=== PATIENT | male | born 1935 | race Two or more races ===

== ENCOUNTER 2019-10-10 13:55 | Inpatient (IN) | payer BC ==
[~2019-10-10] VITALS: Ht 177.8 cm; Wt 90.7 kg
[2019-10-10 14:26] VITALS: BP 130/58
--- NOTE | 2019-10-10 14:45 | NUR ---
ED Nurse Note: Patient brought in by ambulance RA 58 from home. patient c/o dizziness for 2 days. patient is alert awake x3 breathing unlabored and even, speaking in full sentences. patient on a hospital gown and placed on a campus monitor.
--- NOTE | 2019-10-10 15:10 | NUR ---
ED Nurse Note: blood sent to lab.
--- NOTE | 2019-10-10 15:20 | NUR ---
ED Nurse Note: son at bedside. caregiver at bedside. patient a/o x3 resting in bed.
--- NOTE | 2019-10-10 15:29 | Emergency Room Report ---
History of Present Illness General Chief Complaint: Dizziness Source: Patient, EMS Present Illness HPI Patient presents with complaints of dizziness and lightheadedness patient reports that when he stands and walks he feels that the symptoms worsen Ongoing for the past 3 days denies any headache denies any chest pain he does have general weakness as well Marketing Planning Manager reports that the patient has had significantly decreased oral intake Appears to be having chills at times patient denies any focal weakness denies any recent trauma Patient recalls taking amlodipine however cannot provide specific names of other medication Allergies: Coded Allergies: No Known Allergies (Unverified , 10/10/19) Patient History Past Medical History: see triage record Reviewed Nursing Documentation: PMH: Agreed; PSxH: Agreed Nursing Documentation-PMH Past Medical History: No History, Except For Hx Hypertension: Yes Hx Diabetes: Yes Review of Systems All Other Systems: negative except mentioned in HPI Physical Exam Vital Signs Date Time Temp Pulse Resp B/P (MAP) Pulse Ox O2 Delivery O2 Flow Rate FiO2 10/10/19 13:48 97.5 44 20 131/57 (81) 98 Room Air Sp02 EP Interpretation: reviewed, normal General Appearance: no apparent distress Head: normocephalic, atraumatic Eyes: bilateral eye PERRL ENT: EOM grossly intact Neck: supple Respiratory: lungs clear, no respiratory distress, no retraction Cardiovascular #1: regular rate, rhythm Gastrointestinal: non tender, soft Musculoskeletal: swelling - Dependent bilateral mild edema Neurologic: alert, oriented x3 Skin: no rash Procedures Critical Care Time Critical Care Time 40 minutes for critical presentation concerning findings concerning for cardio cardiopulmonary arrest and possible not including any procedural time Medical Decision Making Diagnostic Impression: Primary Impression: Symptomatic bradycardia Additional Impression: Dizziness ER Course Patient is a fairly complex patient with multiple differential to consideration including but not limited to cardiac cardiopulmonary and vascular emergencies Upon arrival patient is found to be bradycardic at this time I cannot appreciate any obvious rate controlling medications Patient has further hydration provided there is sign of dehydration and hyperkalemia Patient has continued to mildly improve up to Low to mid 50 heart rate and at this time is admitted for further inpatient care Labs Test 10/10/19 14:52 10/10/19 19:57 White Blood Count 4.5 K/UL (4.8-10.8) Red Blood Count 3.44 M/UL (4.70-6.10) Hemoglobin 11.0 G/DL (14.2-18.0) Hematocrit 31.1 % (42.0-52.0) Mean Corpuscular Volume 91 FL (80-99) Mean Corpuscular Hemoglobin 32.1 PG (27.0-31.0) Mean Corpuscular Hemoglobin Concent 35.4 G/DL (32.0-36.0) Red Cell Distribution Width 15.1 % (11.6-14.8) Platelet Count 181 K/UL (150-450) Mean Platelet Volume 5.9 FL (6.5-10.1) Neutrophils (%) (Auto) 54.6 % (45.0-75.0) Lymphocytes (%) (Auto) 24.3 % (20.0-45.0) Monocytes (%) (Auto) 8.8 % (1.0-10.0) Eosinophils (%) (Auto) 10.5 % (0.0-3.0) Basophils (%) (Auto) 1.7 % (0.0-2.0) Prothrombin Time 10.2 SEC (9.30-11.50) Prothromb Time International Ratio 1.0 (0.9-1.1) Activated Partial Thromboplast Time 33 SEC (23-33) Sodium Level 145 MMOL/L (136-145) Potassium Level 5.3 MMOL/L (3.5-5.1) Chloride Level 110 MMOL/L (98-107) Carbon Dioxide Level 26 MMOL/L (21-32) Anion Gap 9 mmol/L (5-15) Blood Urea Nitrogen 82 mg/dL (7-18) Creatinine 1.9 MG/DL (0.55-1.30) Estimat Glomerular Filtration Rate mL/min (>60) Glucose Level 63 MG/DL (74-106) Lactic Acid Level 0.90 mmol/L (0.4-2.0) Calcium Level 8.9 MG/DL (8.5-10.1) Total Bilirubin 0.6 MG/DL (0.2-1.0) Aspartate Amino Transf (AST/SGOT) 38 U/L (15-37) Alanine Aminotransferase (ALT/SGPT) 61 U/L (12-78) Alkaline Phosphatase 137 U/L (46-116) Total Creatine Kinase 119 U/L (26-308) Creatine Kinase MB 12.7 NG/ML (0.0-3.6) Creatine Kinase MB Relative Index 10.6 Troponin I 0.022 ng/mL (0.000-0.056) Pro-B-Type Natriuretic Peptide 346 pg/mL (0-125) Total Protein 7.2 G/DL (6.4-8.2) Albumin 3.2 G/DL (3.4-5.0) Globulin 4.0 g/dL Albumin/Globulin Ratio 0.8 (1.0-2.7) Lipase 307 U/L (73-393) Urine Color Pale yellow Urine Appearance Slightly cloudy Urine pH 7 (4.5-8.0) Urine Specific [place] 1.010 (1.005-1.035) Urine Protein 3+ (NEGATIVE) Urine Glucose (UA) Negative (NEGATIVE) Urine Ketones Negative (NEGATIVE) Urine Blood 1+ (NEGATIVE) Urine Nitrite Negative (NEGATIVE) Urine Bilirubin Negative (NEGATIVE) Urine Urobilinogen Normal MG/DL (0.0-1.0) Urine Leukocyte Esterase 3+ (NEGATIVE) Urine RBC 0-2 /HPF (0 - 0) Urine WBC 10-15 /HPF (0 - 0) Urine Squamous Epithelial Cells None /LPF (NONE/OCC) Urine Bacteria Occasional /HPF (NONE) Rhythm Strip Diag. Results EP Interpretation: yes Rate: 40 Rhythm: NSR, no PVC's, no ectopy Chest X-Ray Diagnostic Results Chest X-Ray Diagnostic Results : Chest X-Ray Ordered: Yes # of Views/Limited/Complete: 1 View Indication: Chest Pain EP Interpretation: Yes Interpretation: no consolidation, no acute cardiopulmonary disease, other - Mild atelectasis bilaterally Impression: No acute disease Electronically Signed by: Rosie Aguirre DO Last Vital Signs Date Time Temp Pulse Resp B/P (MAP) Pulse Ox O2 Delivery O2 Flow Rate FiO2 10/10/19 14:28 42 13 Room Air 10/10/19 14:26 97.5 130/58 98 Status: improved Disposition: ADMITTED INPATIENT Condition: Rosie Alejo DO Oct 10, 2019 15:29
[2019-10-10 15:36] LABS: BASOPHILS % (AUTO) 1.7 % (0.0-2.0); EOSINOPHILS % (AUTO) 10.5 % (0.0-3.0); HEMATOCRIT 31.1 % (42.0-52.0); LYMPHOCYTES % (AUTO) 24.3 % (20.0-45.0); MEAN CORPUSCULAR VOLUME 91 FL (80-99); MONOCYTES % (AUTO) 8.8 % (1.0-10.0); NEUTROPHILS % (AUTO) 54.6 % (45.0-75.0); PLATELET COUNT 181 K/UL (150-450); RED BLOOD COUNT 3.44 M/UL (4.70-6.10); RED CELL DISTRIBUTION WIDTH 15.1 % (11.6-14.8); WHITE BLOOD COUNT 4.5 K/UL (4.8-10.8)
[2019-10-10 15:47] LABS: ANION GAP 9 mmol/L (5-15); BLOOD UREA NITROGEN 82 mg/dL (7-18); CALCIUM 8.9 MG/DL (8.5-10.1); CARBON DIOXIDE 26 MMOL/L (21-32); CHLORIDE 110 MMOL/L (98-107); CREATININE 1.9 MG/DL (0.55-1.30); POTASSIUM 5.3 MMOL/L (3.5-5.1); SODIUM 145 MMOL/L (136-145)
[2019-10-10 15:59] LABS: ALANINE AMINOTRANSFERASE 61 U/L (12-78); ALBUMIN 3.2 G/DL (3.4-5.0); ALBUMIN/GLOBULIN RATIO 0.8 (1.0-2.7); ALKALINE PHOSPHATASE 137 U/L (46-116); ASPARTATE AMINO TRANSFERASE 38 U/L (15-37); BILIRUBIN,TOTAL 0.6 MG/DL (0.2-1.0); CKMB 12.7 NG/ML (0.0-3.6); CREATINE KINASE 119 U/L (26-308)
[2019-10-10] MEDS ORDERED: PROSCAR5 MG ORAL (17:28)
[2019-10-10] MEDS ORDERED: AMLODIPINE BESYL5 MG ORAL (17:28)
[2019-10-10] MEDS ORDERED: ATORVASTATIN CA40 MG ORAL (17:28)
[2019-10-10] MEDS ORDERED: SERTRALINE HCL25 MG ORAL (17:28)
[2019-10-10] MEDS ORDERED: Sodium Polystyrene Sulfonate 15gm Powder ORAL ONE (17:45)
[2019-10-10] MEDS ORDERED: Sodium Polystyrene Sulfonate 15gm Powder ONE (17:58)
--- NOTE | 2019-10-10 18:59 | NUR ---
HAND-OFF: Report given to ALYSHA JOHNSON.
--- NOTE | 2019-10-10 19:00 | NUR ---
ED Nurse Note: Hand-off report given by Elli JOHNSON. Pt VSS, NAD, calm and resting. Will continue to monitor patient.
--- NOTE | 2019-10-10 19:50 | NUR ---
ED Nurse Note: Urine collected and sent to lab.
[2019-10-10 20:30] LABS: APPEARANCE,URINE SLIGHTLY CLOUDY; BILIRUBIN, URINE NEGATIVE (NEGATIVE); COLOR,URINE PALE YELLOW; GLUCOSE, URINE (UA) NEGATIVE (NEGATIVE); KETONES,URINE NEGATIVE (NEGATIVE); LEUKOCYTE ESTERASE ,URINE 3+ (NEGATIVE); NITRITE,URINE NEGATIVE (NEGATIVE); PH,URINE 7 (4.5-8.0); PROTEIN,URINE 3+ (NEGATIVE); UROBILINOGEN,URINE NORMAL MG/DL (0.0-1.0)
[2019-10-10] MEDS ORDERED: Heparin 5000 units/ml inj SUBQ SCH (21:00)
[2019-10-10 21:26] VITALS: BP 126/59
--- NOTE | 2019-10-10 22:10 | NUR ---
ED Nurse Note: Pt report given to Siria JOHNSON
--- NOTE | 2019-10-10 22:20 | NUR ---
TRANSFER TO FLOOR: Patient transferred to [facility] as ordered, per ERMD. Report given to Siria JOHNSON. Belongings given to Siria JOHNSON. Pt VSS, NAD, calm.
[2019-10-10 22:22] VITALS: BP 128/72
--- NOTE | 2019-10-10 22:22 | NUR ---
NURSE NOTES: Patient arrived via gurney to the unit and placed into room 238-2. Patient placed into bed, campus monitor is placed, vital signs taken, gown and linen changed. Patient states he does not take any medications for his diabetes. Request for all side rails to be up which he states "just incase". All needs are fulfilled. Report received from Rafa Crespo RN. Dr. Orr orders are in. Will initiate plan of care.
[2019-10-10] MEDS: D5 1/2NS 1,000 ML IV SCH (22:38)
[2019-10-10] MEDS: Heparin 5000 units/ml inj SUBQ SCH (22:39)
[2019-10-11] VITALS (7 sets, daily range): BP systolic 127–148; BP diastolic 68–80
--- NOTE | 2019-10-11 07:05 | NUR ---
HAND-OFF: Report given to Omaira/ELIZABETH Hernandes.
[2019-10-11 07:21] LABS: BASOPHILS % (AUTO) 1.6 % (0.0-2.0); EOSINOPHILS % (AUTO) 9.3 % (0.0-3.0); HEMATOCRIT 30.3 % (42.0-52.0); HEMOGLOBIN 10.1 G/DL (14.2-18.0); LYMPHOCYTES % (AUTO) 19.4 % (20.0-45.0); MEAN CORPUSCULAR VOLUME 95 FL (80-99); MONOCYTES % (AUTO) 8.6 % (1.0-10.0); NEUTROPHILS % (AUTO) 61.2 % (45.0-75.0); PLATELET COUNT 177 K/UL (150-450); RED BLOOD COUNT 3.17 M/UL (4.70-6.10); RED CELL DISTRIBUTION WIDTH 17.4 % (11.6-14.8); WHITE BLOOD COUNT 4.4 K/UL (4.8-10.8)
[2019-10-11 07:27] LABS: ALANINE AMINOTRANSFERASE 54 U/L (12-78); ALBUMIN 2.9 G/DL (3.4-5.0); ALBUMIN/GLOBULIN RATIO 0.8 (1.0-2.7); ALKALINE PHOSPHATASE 124 U/L (46-116); ANION GAP 8 mmol/L (5-15); ASPARTATE AMINO TRANSFERASE 36 U/L (15-37); BILIRUBIN,TOTAL 0.7 MG/DL (0.2-1.0); BLOOD UREA NITROGEN 73 mg/dL (7-18); CALCIUM 8.5 MG/DL (8.5-10.1); CARBON DIOXIDE 27 MMOL/L (21-32); CHLORIDE 112 MMOL/L (98-107); CREATININE 1.9 MG/DL (0.55-1.30); POTASSIUM 4.3 MMOL/L (3.5-5.1); SODIUM 147 MMOL/L (136-145)
--- NOTE | 2019-10-11 08:00 | NUR ---
NURSE NOTES: Patient received from Siria JOHNSON. Patient stable, sleeping at this time. No s/sx of distress with RR even and unlabored on RA. Side rails padded and upx2, call light within reach, bed low and locked. Received call from Dr. Newton to keep pt. NPO for possible pacemaker placement. Will continue to monitor.
[2019-10-11] MEDS: Heparin 5000 units/ml inj SUBQ SCH ×2 (08:43→20:23)
[2019-10-11] MEDS: Sertraline 50mg tab ORAL SCH (08:43)
--- NOTE | 2019-10-11 08:54 | Diagnostic Imaging Report ---
Indication: Chest pain Technique: XRAY Chest 1v Comparison: None Findings: Lung volumes are low. Heart appears mildly enlarged. Some subtle opacities noted at the medial bases, left greater than right, which may related to expiratory atelectatic changes. Infectious infiltrates thought less likely but not excluded. No radiographically appreciable pleural effusion or pneumothorax. There is osteopenia and degenerative changes of the spine and shoulders. Impression: Limited exam with low lung volumes. Subtle streaky opacities at the bilateral bases favored to represent extra atelectasis. Infectious infiltrate is felt less likely but not entirely excluded. Correlation with clinical findings is recommended.
--- NOTE | 2019-10-11 09:20 | History and Physical ---
History of Present Illness General Date patient seen: Oct 11, 2019 Reason for Hospitalization: Dizziness Present Illness HPI 84 year old male who presented to the ER with 3 days of dizziness and shaking. He is a poor historian and sarcastic at times. History obtained from review of medical chart. He tells me he has diabetes and hypertension, and takes 7 medications however doesn't know their names. He feels cold and clammy. Denies chest pain, sob, palpitations or LOC. His primary care doctor is Hermes Naylor. Per pet care associate, patient has significant reduction in oral intake. No fevers at home. In the ER his BP 131/57, Hr low at 44, temp 97.5F, sats 98% on RA. He was found to be hypoglycemic with glucose of 63, BUN/Cr: 82/1.9, CXR: Low lung volumes.initial EKG strip: Junctional rhythm at 45 bmp. Past medical and surgical history: HTN, DM, HLD, BPH, depression, multiple spine surgeries Social history: Lives at home with Family history: denies history of heart disease ROS: Denies chest pain, sob, palpitations, loc, has poor appetite, chills, shaking, dizziness and lightheadedness Allergies: Coded Allergies: No Known Allergies (Unverified , 10/10/19) Medication History Scheduled Amlodipine Besylate* (Amlodipine Besylate*), 5 MG ORAL DAILY, (Reported) Atorvastatin Calcium* (Atorvastatin Calcium*), 80 MG ORAL BEDTIME, (Reported) Finasteride* (Proscar*), 5 MG ORAL DAILY, (Reported) Sertraline Hcl* (Sertraline Hcl*), 25 MG ORAL DAILY, (Reported) Patient History Healthcare decision maker Resuscitation status Full Code Advanced Directive on File Physical Exam Physical Exam Narrative General Appearance: no apparent distress Head: normocephalic, atraumatic Eyes: bilateral eye PERRL ENT: EOM grossly intact Neck: supple, no jvd Respiratory: lungs clear, no respiratory distress, no retraction, no rales, wheezing or rhonchi Cardiovascular : RRR, no m/r/g, trace lower extremity edema bilaterally Gastrointestinal: non tender, soft, non distended, +bs, obese Musculoskeletal: moves all extremities, normal tone Neurologic: alert, oriented x3, grossly normal Skin: no rash, left eyelid actinic keratosis, lesion on nose Last 24 Hour Vital Signs Date Time Temp Pulse Resp B/P (MAP) Pulse Ox O2 Delivery O2 Flow Rate FiO2 10/11/19 04:00 Room Air 10/11/19 04:00 97.4 57 20 127/68 (87) 94 10/11/19 03:32 62 10/11/19 00:00 97.8 57 20 127/74 (91) 98 10/11/19 00:00 Room Air 10/10/19 23:49 62 10/10/19 22:33 97.5 66 17 126/59 96 Room Air 10/10/19 22:22 Room Air 10/10/19 22:22 97.4 60 24 128/72 (90) 95 10/10/19 21:26 66 17 126/59 96 Room Air 10/10/19 14:28 42 13 Room Air 10/10/19 14:26 97.5 42 13 130/58 98 Room Air 10/10/19 13:48 97.5 44 20 131/57 (81) 98 Room Air Intake and Output 10/10/19 10/11/19 19:00 07:00 Intake Total 918.26 ml Balance 918.26 ml Intake Oral 500 ml IV Total 418.26 ml # Voids 1 Laboratory Tests Test 10/10/19 14:52 10/10/19 19:57 10/11/19 03:27 10/11/19 08:20 White Blood Count 4.5 K/UL (4.8-10.8) L 4.4 K/UL (4.8-10.8) L Red Blood Count 3.44 M/UL (4.70-6.10) L 3.17 M/UL (4.70-6.10) L Hemoglobin 11.0 G/DL (14.2-18.0) L 10.1 G/DL (14.2-18.0) L Hematocrit 31.1 % (42.0-52.0) L 30.3 % (42.0-52.0) L Mean Corpuscular Volume 91 FL (80-99) 95 FL (80-99) Mean Corpuscular Hemoglobin 32.1 PG (27.0-31.0) H 31.9 PG (27.0-31.0) H Mean Corpuscular Hemoglobin Concent 35.4 G/DL (32.0-36.0) 33.5 G/DL (32.0-36.0) Red Cell Distribution Width 15.1 % (11.6-14.8) H 17.4 % (11.6-14.8) H Platelet Count 181 K/UL (150-450) 177 K/UL (150-450) Mean Platelet Volume 5.9 FL (6.5-10.1) L 6.3 FL (6.5-10.1) L Neutrophils (%) (Auto) 54.6 % (45.0-75.0) 61.2 % (45.0-75.0) Lymphocytes (%) (Auto) 24.3 % (20.0-45.0) 19.4 % (20.0-45.0) L Monocytes (%) (Auto) 8.8 % (1.0-10.0) 8.6 % (1.0-10.0) Eosinophils (%) (Auto) 10.5 % (0.0-3.0) H 9.3 % (0.0-3.0) H Basophils (%) (Auto) 1.7 % (0.0-2.0) 1.6 % (0.0-2.0) Prothrombin Time 10.2 SEC (9.30-11.50) Prothromb Time International Ratio 1.0 (0.9-1.1) Activated Partial Thromboplast Time 33 SEC (23-33) Sodium Level 145 MMOL/L (136-145) 147 MMOL/L (136-145) H Potassium Level 5.3 MMOL/L (3.5-5.1) H 4.3 MMOL/L (3.5-5.1) Chloride Level 110 MMOL/L (98-107) H 112 MMOL/L (98-107) H Carbon Dioxide Level 26 MMOL/L (21-32) 27 MMOL/L (21-32) Anion Gap 9 mmol/L (5-15) 8 mmol/L (5-15) Blood Urea Nitrogen 82 mg/dL (7-18) H 73 mg/dL (7-18) H Creatinine 1.9 MG/DL (0.55-1.30) H 1.9 MG/DL (0.55-1.30) H Estimat Glomerular Filtration Rate mL/min (>60) mL/min (>60) Glucose Level 63 MG/DL (74-106) L 73 MG/DL (74-106) L Lactic Acid Level 0.90 mmol/L (0.4-2.0) Calcium Level 8.9 MG/DL (8.5-10.1) 8.5 MG/DL (8.5-10.1) Total Bilirubin 0.6 MG/DL (0.2-1.0) 0.7 MG/DL (0.2-1.0) Aspartate Amino Transf (AST/SGOT) 38 U/L (15-37) H 36 U/L (15-37) Alanine Aminotransferase (ALT/SGPT) 61 U/L (12-78) 54 U/L (12-78) Alkaline Phosphatase 137 U/L (46-116) H 124 U/L (46-116) H Total Creatine Kinase 119 U/L (26-308) Creatine Kinase MB 12.7 NG/ML (0.0-3.6) H Creatine Kinase MB Relative Index 10.6 Troponin I 0.022 ng/mL (0.000-0.056) 0.009 ng/mL (0.000-0.056) Pro-B-Type Natriuretic Peptide 346 pg/mL (0-125) H Total Protein 7.2 G/DL (6.4-8.2) 6.4 G/DL (6.4-8.2) Albumin 3.2 G/DL (3.4-5.0) L 2.9 G/DL (3.4-5.0) L Globulin 4.0 g/dL 3.5 g/dL Albumin/Globulin Ratio 0.8 (1.0-2.7) L 0.8 (1.0-2.7) L Lipase 307 U/L (73-393) Urine Color Pale yellow Urine Appearance Slightly cloudy Urine pH 7 (4.5-8.0) Urine Specific [place] 1.010 (1.005-1.035) Urine Protein 3+ (NEGATIVE) H Urine Glucose (UA) Negative (NEGATIVE) Urine Ketones Negative (NEGATIVE) Urine Blood 1+ (NEGATIVE) H Urine Nitrite Negative (NEGATIVE) Urine Bilirubin Negative (NEGATIVE) Urine Urobilinogen Normal MG/DL (0.0-1.0) Urine Leukocyte Esterase 3+ (NEGATIVE) H Urine RBC 0-2 /HPF (0 - 0) H Urine WBC 10-15 /HPF (0 - 0) H Urine Squamous Epithelial Cells None /LPF (NONE/OCC) Urine Bacteria Occasional /HPF (NONE) Thyroid Stimulating Hormone (TSH) 3.691 uiU/mL (0.358-3.740) Hemoglobin A1c Pending Uric Acid Pending Phosphorus Level Pending Magnesium Level Pending Iron Level Pending Unsaturated Iron Binding Pending Ferritin Pending Vitamin B12 Level Pending Folate Pending Free Thyroxine Pending Free Triiodothyronine Pending Height (Feet): 5 Height (Inches): 10.00 Weight (Pounds): 200 Medications Current Medications Medications (Trade) Dose Ordered Sig/Livia Route PRN Reason Start Time Stop Time Status Last Admin Dose Admin Acetaminophen (Tylenol) 650 mg Q4H PRN ORAL Mild Pain (Pain Scale 1-3) 10/10/19 19:00 11/09/19 18:59 Dextrose (Dextrose 50%) 25 ml Q30M PRN IV Hypoglycemia 10/10/19 19:00 11/09/19 18:59 Dextrose (Dextrose 50%) 50 ml Q30M PRN IV Hypoglycemia 10/10/19 19:00 11/09/19 18:59 Dextrose/Sodium Chloride 1,000 ml @ 50 mls/hr Q20H IV 10/10/19 22:00 11/09/19 21:59 10/10/19 22:38 Finasteride (Proscar) 5 mg DAILY ORAL 10/11/19 09:00 11/10/19 08:59 10/11/19 08:43 Heparin Sodium (Porcine) (Heparin 5000 units/ml) 5,000 units EVERY 12 HOURS SUBQ 10/10/19 22:00 11/09/19 21:59 10/10/19 22:39 Sertraline HCl (Zoloft) 25 mg DAILY ORAL 10/11/19 09:00 11/10/19 08:59 10/11/19 08:43 Objective Narrative EKG strip personally reviewed by me: Junctional rhythm at 44 bmp. CXR; low lung volumes Assessment/Plan Problem List: (1) Symptomatic bradycardia ICD Codes: R00.1 - Bradycardia, unspecified SNOMED: 16030630, 221526253 (2) Hypoglycemia ICD Codes: E16.2 - Hypoglycemia, unspecified SNOMED: 228008589 (3) LLOYD (acute kidney injury) ICD Codes: N17.9 - Acute kidney failure, unspecified SNOMED: 8447449, 53061253 Status: stable Assessment/Plan: 84 year old male, presented with dizziness, shaking and lightheadedness being admitted for symptomatic bradycardia, LLOYD and dehydration #Symptomatic bradycardia -Telemetry monitoring -EP cardiology consult with Dr. Newton -NPO -Hold bp meds -Check TSH #LLOYD- prerenal, possibly superimposed on CKD -Monitor renal function -Urine lytes -Nephrology consult, Dr. Lopez -Avoid nephrotoxic medications #hypoglycemia -hold meds -Monitor glucose -check HbA1c -will d/w Dr. Cyndy castellon endocrine consultation #HTN #HLD -hold bp meds -continue atorvastatin #BPH -continue Finasteride #Depression -continue Sertraline vte ppx: heparin subq GI ppx: Not indicated Diet: NPO Code status: full code. spent 15 minutes in face to face discussion regarding advance care planning/Goals of care. Patient is full code. Will attempt to fill out an AD and/or POLST with the patient prior to discharge, if not already completed. Rishahb continue to discuss both short and truck terminal manager goals of care. I spent 70 minutes on this encounter. >50% spent on counselling and care coordination. I spent an additional 35 minutes on non face to face review of records. Plan of care d/w RN and consultants. Jordin Kline M.D. Oct 11, 2019 09:20
[2019-10-11 09:23] LABS: FERRITIN 162 NG/ML (8-388)
[2019-10-11 09:27] LABS: PHOSPHORUS 4.3 MG/DL (2.5-4.9)
[2019-10-11 09:37] LABS: % IRON SATURATION 52 % (15-50); IRON 148 ug/dL (50-175); TOTAL IRON BINDING CAPACITY 284 ug/dL (250-450)
--- NOTE | 2019-10-11 13:43 | NUR ---
*-* INSURANCE *-* ALL CLINICALS AND REVIEWS HAVE BEEN FAXED TO: [employer] AUTH#[id number] NO PER DIEM NURSE AT THIS TIME FAX ALL CLINICALS TO [phone]
--- NOTE | 2019-10-11 13:52 | Cardiac Electrophysiology PN ---
Subjective Subjective [id number] Hold off on pacer as junctional rhythm happened in the setting or acute renal failure, hyperkalemia and hypernatremia. HR better already If bradycardia recurs despite correction of electrolyte abnormality, then will consider pacer. DW Son Objective Last 24 Hour Vital Signs Date Time Temp Pulse Resp B/P (MAP) Pulse Ox O2 Delivery O2 Flow Rate FiO2 10/11/19 12:00 59 10/11/19 12:00 97.7 61 18 143/76 (98) 94 10/11/19 09:00 Room Air 10/11/19 08:00 63 10/11/19 08:00 97.2 72 18 129/80 (96) 93 10/11/19 04:00 Room Air 10/11/19 04:00 97.4 57 20 127/68 (87) 94 10/11/19 03:32 62 10/11/19 00:00 97.8 57 20 127/74 (91) 98 10/11/19 00:00 Room Air 10/10/19 23:49 62 10/10/19 22:33 97.5 66 17 126/59 96 Room Air 10/10/19 22:22 Room Air 10/10/19 22:22 97.4 60 24 128/72 (90) 95 10/10/19 21:26 66 17 126/59 96 Room Air 10/10/19 14:28 42 13 Room Air 10/10/19 14:26 97.5 42 13 130/58 98 Room Air Intake and Output 10/10/19 10/11/19 19:00 07:00 Intake Total 918.26 ml Balance 918.26 ml Intake Oral 500 ml IV Total 418.26 ml # Voids 1 Laboratory Tests Test 10/10/19 14:52 10/10/19 19:57 10/11/19 03:27 10/11/19 08:20 White Blood Count 4.5 K/UL (4.8-10.8) L 4.4 K/UL (4.8-10.8) L Red Blood Count 3.44 M/UL (4.70-6.10) L 3.17 M/UL (4.70-6.10) L Hemoglobin 11.0 G/DL (14.2-18.0) L 10.1 G/DL (14.2-18.0) L Hematocrit 31.1 % (42.0-52.0) L 30.3 % (42.0-52.0) L Mean Corpuscular Volume 91 FL (80-99) 95 FL (80-99) Mean Corpuscular Hemoglobin 32.1 PG (27.0-31.0) H 31.9 PG (27.0-31.0) H Mean Corpuscular Hemoglobin Concent 35.4 G/DL (32.0-36.0) 33.5 G/DL (32.0-36.0) Red Cell Distribution Width 15.1 % (11.6-14.8) H 17.4 % (11.6-14.8) H Platelet Count 181 K/UL (150-450) 177 K/UL (150-450) Mean Platelet Volume 5.9 FL (6.5-10.1) L 6.3 FL (6.5-10.1) L Neutrophils (%) (Auto) 54.6 % (45.0-75.0) 61.2 % (45.0-75.0) Lymphocytes (%) (Auto) 24.3 % (20.0-45.0) 19.4 % (20.0-45.0) L Monocytes (%) (Auto) 8.8 % (1.0-10.0) 8.6 % (1.0-10.0) Eosinophils (%) (Auto) 10.5 % (0.0-3.0) H 9.3 % (0.0-3.0) H Basophils (%) (Auto) 1.7 % (0.0-2.0) 1.6 % (0.0-2.0) Prothrombin Time 10.2 SEC (9.30-11.50) Prothromb Time International Ratio 1.0 (0.9-1.1) Activated Partial Thromboplast Time 33 SEC (23-33) Sodium Level 145 MMOL/L (136-145) 147 MMOL/L (136-145) H Potassium Level 5.3 MMOL/L (3.5-5.1) H 4.3 MMOL/L (3.5-5.1) Chloride Level 110 MMOL/L (98-107) H 112 MMOL/L (98-107) H Carbon Dioxide Level 26 MMOL/L (21-32) 27 MMOL/L (21-32) Anion Gap 9 mmol/L (5-15) 8 mmol/L (5-15) Blood Urea Nitrogen 82 mg/dL (7-18) H 73 mg/dL (7-18) H Creatinine 1.9 MG/DL (0.55-1.30) H 1.9 MG/DL (0.55-1.30) H Estimat Glomerular Filtration Rate mL/min (>60) mL/min (>60) Glucose Level 63 MG/DL (74-106) L 73 MG/DL (74-106) L Lactic Acid Level 0.90 mmol/L (0.4-2.0) Calcium Level 8.9 MG/DL (8.5-10.1) 8.5 MG/DL (8.5-10.1) Total Bilirubin 0.6 MG/DL (0.2-1.0) 0.7 MG/DL (0.2-1.0) Aspartate Amino Transf (AST/SGOT) 38 U/L (15-37) H 36 U/L (15-37) Alanine Aminotransferase (ALT/SGPT) 61 U/L (12-78) 54 U/L (12-78) Alkaline Phosphatase 137 U/L (46-116) H 124 U/L (46-116) H Total Creatine Kinase 119 U/L (26-308) Creatine Kinase MB 12.7 NG/ML (0.0-3.6) H Creatine Kinase MB Relative Index 10.6 Troponin I 0.022 ng/mL (0.000-0.056) 0.009 ng/mL (0.000-0.056) Pro-B-Type Natriuretic Peptide 346 pg/mL (0-125) H Total Protein 7.2 G/DL (6.4-8.2) 6.4 G/DL (6.4-8.2) Albumin 3.2 G/DL (3.4-5.0) L 2.9 G/DL (3.4-5.0) L Globulin 4.0 g/dL 3.5 g/dL Albumin/Globulin Ratio 0.8 (1.0-2.7) L 0.8 (1.0-2.7) L Lipase 307 U/L (73-393) Urine Color Pale yellow Urine Appearance Slightly cloudy Urine pH 7 (4.5-8.0) Urine Specific [place] 1.010 (1.005-1.035) Urine Protein 3+ (NEGATIVE) H Urine Glucose (UA) Negative (NEGATIVE) Urine Ketones Negative (NEGATIVE) Urine Blood 1+ (NEGATIVE) H Urine Nitrite Negative (NEGATIVE) Urine Bilirubin Negative (NEGATIVE) Urine Urobilinogen Normal MG/DL (0.0-1.0) Urine Leukocyte Esterase 3+ (NEGATIVE) H Urine RBC 0-2 /HPF (0 - 0) H Urine WBC 10-15 /HPF (0 - 0) H Urine Squamous Epithelial Cells None /LPF (NONE/OCC) Urine Bacteria Occasional /HPF (NONE) Thyroid Stimulating Hormone (TSH) 3.691 uiU/mL (0.358-3.740) Hemoglobin A1c 5.4 % (4.3-6.0) Uric Acid 1.0 MG/DL (2.6-7.2) L Phosphorus Level 4.3 MG/DL (2.5-4.9) Magnesium Level 2.5 MG/DL (1.8-2.4) H Iron Level 148 ug/dL (50-175) Total Iron Binding Capacity 284 ug/dL (250-450) Percent Iron Saturation 52 % (15-50) H Unsaturated Iron Binding 136 ug/dL (112-346) Ferritin 162 NG/ML (8-388) Vitamin B12 Level 855 PG/ML (193-986) Folate 10.8 NG/ML (8.6-58.9) Free Thyroxine 0.88 NG/DL (0.76-1.46) Free Triiodothyronine 1.7 pg/mL (2.3-4.2) L Microbiology Date/Time Source Procedure Growth Status 10/10/19 19:57 Urine,Clean Catch Urine Culture - Preliminary Resulted Jesus Newton MD Oct 11, 2019 13:52
--- NOTE | 2019-10-11 14:23 | Consultation ---
Consult Note Consult Note Asked to eval for renal failure Patient presents with complaints of dizziness and lightheadedness patient reports that when he stands and walks he feels that the symptoms worsen Ongoing for the past 3 days denies any headache denies any chest pain he does have general weakness as well Echocardiography Technologist reports that the patient has had significantly decreased oral intake Appears to be having chills at times patient denies any focal weakness denies any recent trauma Patient recalls taking amlodipine however cannot provide specific names of other medication No Known Allergies (Unverified , 10/10/19) Past Medical History: No History, Except For Hx Hypertension: Yes Hx Diabetes: Yes interviewed examined data reviewed . Assessment/Plan LLOYD (acute kidney injury) ? superimposed on CKD Symptomatic bradycardia DM / Hypoglycemia HTN BPH Depression Anemia Slow hydrate check TFTs Flomax monitor renal parameters avoid nephrotoxics per orders Nabil Lopez MD Oct 11, 2019 14:23
--- NOTE | 2019-10-11 14:32 | NUR ---
CASE MANAGEMENT: INITIAL REVIEW 84 YR OLD MALE BIBA FROM HOME CC: DIZZY X 2DAYS SI: SYMPTOMATIC BRADYCARDIA / SEVERE DIZZINESS 97.5 44 20 131/57 98% ON RA WBC 4.5 H/H 11.0/31.1 URINE + LEUKOCYTES IS: IVF NS BOLUS X1 KAYEXALATE PO X1 \: 2E TELE UNIT DCP: HOME WHEN MEDICALLY CLEARED PLAN: STAT IV D5 X1 CXRAY CASE MANAGEMENT: REVIEW 10/11/19 SI: SYMPTOMATIC BRADYCARDIA / SEVERE DIZZINESS 97.2 72 18 129/80 93% ON RA NA+ 147 BUN 73 CREAT 1.9 URIC ACID 1.0 MG 2.5 WBC 4.4 H/H 10.1/30.3 CL-112 IS: IV D5 @50ML/HR PROSCAR PO QD \: 2E TELE UNIT DCP: HOME WHEN MEDICALLY CLEARED PLAN: 2D ECHO PACEMAKER PLACEMENT ? JUNCTIONAL RHYTHM
[2019-10-11] MEDS: D5 1/2NS 1,000 ML IV SCH (17:47)
--- NOTE | 2019-10-11 19:40 | NUR ---
NURSE NOTES: Received patient from Greta JOHNSON. Patient in bed, on room air, no s/s respiratory distress. D51/2NS infusing at 50ml/hr through right forearm 20gauge, no signs of infection or infiltration, dressing intact. Bed in low position, locked, bed alarm on, call light within reach. Patient is alert and oriented x4, no c/o pain.
--- NOTE | 2019-10-11 19:43 | NUR ---
HAND-OFF: Report given to Kayode Nunes RN. Patient stable. Endorsed plan of care.
--- NOTE | 2019-10-11 20:00 | Consultation ---
DATE OF CONSULTATION: 10/11/2019 CARDIAC ELECTROPHYSIOLOGY CONSULTATION CONSULTING PHYSICIAN: Jesus Newton M.D. REFERRING PHYSICIAN: Jordin Kline M.D. REASON FOR CONSULTATION: Bradycardia and junctional rhythm. HISTORY OF PRESENT ILLNESS: The patient is an 84-year-old gentleman with history of hypertension, diabetes, hyperlipidemia, benign prostatic hypertrophy, depression, and multiple spine surgeries, was brought to the emergency room with 3 days of dizziness and shaking. The patient is a very poor historian. The patient was noted to be bradycardic with the heart rate of 44. The patient also was hypoglycemic with a glucose of 63 with a BUN of 8 and creatinine 1.9. His initial EKG showed junctional rhythm at the rate of 45. Since admission, the patient's heart rate has improved to 60s and 70s. At the time of my evaluation, he denies any chest pain or shortness of breath. REVIEW OF SYSTEMS: Review of systems was negative other than what is mentioned in the history of present illness. PAST MEDICAL HISTORY: As mentioned above. MEDICATIONS: Include amlodipine, Lipitor, Proscar, and sertraline. FAMILY HISTORY: Noncontributory. SOCIAL HISTORY: Lives with his . Does not smoke or drink alcohol. He has a son who is very involved in the care. PHYSICAL EXAMINATION: VITAL SIGNS: Show blood pressure of 143/76, pulse is 62, respirations 18, and he is afebrile. HEAD AND NECK: Showed no JVD. LUNGS: Clear. CARDIOVASCULAR: Shows regular S1 and S2 with no gallop or murmur. ABDOMEN: Soft. EXTREMITIES: No pitting edema. LABORATORY AND DIAGNOSTIC DATA: His telemetry strips showed sinus rhythm with occasional PVCs. His initial EKG showed junctional rhythm at the rate of 45. His labs show sodium 147, potassium of 4.3, BUN of 72, creatinine 1.9, and glucose of 73. Magnesium is 2.5. First troponin is negative. His white count is 4.4, hemoglobin of 10.1, hematocrit of 30, and platelet count is 177,000. Urinalysis showed 10 to 12 wbc and 3+ leukocyte esterase. ASSESSMENT AND PLAN: 1. Symptomatic bradycardia. However, this could be due to the significant electrolyte abnormality with hyperkalemia as well as acute renal failure and hypernatremia. The heart rate has already improved. I will hold off on permanent pacemaker implantation at this time until his electrolytes are corrected. Currently, his heart rate has gone in the 70s. We will get an echocardiogram and completely rule out myocardial infarction protocol for further evaluation. 2. History of hypertension. Blood pressure currently is stable. Off antihypertensive agents. The patient be on amlodipine 5 mg daily only. 3. Hyperlipidemia. On Lipitor. 4. Dehydration with hypernatremia and azotemia. The patient is on IV fluids. Thank you very much for allowing me to participate in the care of this patient. Please do not hesitate to contact me for any questions regarding my evaluation. It is of note that case was discussed with the patient's son as well as Dr. Ron Lewis, the finishing manager, who took care of the patient's and implanted the pacemaker for her. However, the patient has never been Dr. Lewis's patient. Jesus Newton M.D. DR: CHANTAL JOB#: [id number] CC:
[2019-10-11] MEDS: Tamsulosin 0.4mg cap ORAL SCH (20:19)
[2019-10-11] MEDS: HydrALAZINE 10mg Tab ORAL SCH (21:18)
[2019-10-12] VITALS (7 sets, daily range): BP systolic 108–143; BP diastolic 54–74
[2019-10-12] MEDS: HydrALAZINE 10mg Tab ORAL SCH ×3 (05:40→21:30)
--- NOTE | 2019-10-12 07:59 | NUR ---
NURSE NOTES: Patient received from Julisa. Patient stable, sleeping. No s/sx of distress and RR even and unlabored on RA. Side rails upx2, call light within reach, bed low and locked. Will continue to monitor. Addendum: 10/12/19 at 0801 by CATRINA MANZANARES RN Pt received from
[2019-10-12] MEDS: Sertraline 50mg tab ORAL SCH (08:38)
[2019-10-12] MEDS: Tamsulosin 0.4mg cap ORAL SCH ×2 (08:38→20:38)
[2019-10-12] MEDS: Heparin 5000 units/ml inj SUBQ SCH ×2 (08:39→20:39)
[2019-10-12 09:20] LABS: ALANINE AMINOTRANSFERASE 45 U/L (12-78); ALBUMIN 2.7 G/DL (3.4-5.0); ALBUMIN/GLOBULIN RATIO 0.7 (1.0-2.7); ALKALINE PHOSPHATASE 127 U/L (46-116); ANION GAP 9 mmol/L (5-15); ASPARTATE AMINO TRANSFERASE 31 U/L (15-37); BILIRUBIN,TOTAL 0.8 MG/DL (0.2-1.0); BLOOD UREA NITROGEN 63 mg/dL (7-18); CALCIUM 8.8 MG/DL (8.5-10.1); CARBON DIOXIDE 28 MMOL/L (21-32); CHLORIDE 112 MMOL/L (98-107); CREATININE 1.8 MG/DL (0.55-1.30); SODIUM 149 MMOL/L (136-145)
--- NOTE | 2019-10-12 12:00 | NUR ---
NURSE NOTES: Bladder scan performed x3 and showed 0mLs.
--- NOTE | 2019-10-12 12:31 | Nephrology Progress Note ---
Assessment/Plan Problem List: (1) LLOYD (acute kidney injury) (2) Bradycardia (3) BPH (benign prostatic hyperplasia) (4) HTN (hypertension) (5) Anemia Assessment LLOYD (acute kidney injury) ? superimposed on CKD Symptomatic bradycardia DM / Hypoglycemia HTN BPH Depression Anemia Plan flomax IV fluids Low dose hydralazine Subjective ROS Limited/Unobtainable: No Constitutional: Reports: malaise, weakness Objective Objective Last 24 Hour Vital Signs Date Time Temp Pulse Resp B/P (MAP) Pulse Ox O2 Delivery O2 Flow Rate FiO2 10/12/19 09:00 Room Air 10/12/19 08:00 77 10/12/19 08:00 97.0 71 18 108/62 (77) 92 10/12/19 05:40 126/69 10/12/19 05:39 71 126/69 (88) 10/12/19 04:00 97.2 66 20 121/54 (76) 95 10/12/19 04:00 60 10/12/19 00:00 72 10/12/19 00:00 97.0 75 21 132/68 (89) 92 10/11/19 21:18 133/71 10/11/19 21:17 60 133/71 (91) 10/11/19 21:00 Room Air 10/11/19 20:00 67 10/11/19 20:00 97.7 65 20 148/76 (100) 93 10/11/19 16:00 68 10/11/19 16:00 98.2 75 18 148/68 (94) 98 Intake and Output 10/11/19 10/12/19 19:00 07:00 Intake Total 1100 ml 250 ml Balance 1100 ml 250 ml Intake Oral 500 ml IV Total 600 ml 250 ml # Voids 3 4 Laboratory Tests 10/11/19 21:30: Urine Random Sodium 85, Urine Creatinine 25.7L 10/12/19 07:35: Sodium Level 149H, Potassium Level 4.0, Chloride Level 112H, Carbon Dioxide Level 28, Anion Gap 9, Blood Urea Nitrogen 63H, Creatinine 1.8H, Estimat Glomerular Filtration Rate , Glucose Level 108H, Uric Acid 1.3L, Calcium Level 8.8, Phosphorus Level 4.0, Magnesium Level 2.3, Total Bilirubin 0.8, Aspartate Amino Transf (AST/SGOT) 31, Alanine Aminotransferase (ALT/SGPT) 45, Alkaline Phosphatase 127H, Troponin I 0.033, Total Protein 6.4, Albumin 2.7L, Globulin 3.7, Albumin/Globulin Ratio 0.7L, Thyroid Stimulating Hormone (TSH) 3.941H, Free Thyroxine 0.91 Height (Feet): 5 Height (Inches): 10.00 Weight (Pounds): 200 General Appearance: no apparent distress Cardiovascular: normal rate Respiratory/Chest: lungs clear Abdomen: soft Nabil Lopez MD Oct 12, 2019 12:31
--- NOTE | 2019-10-12 12:57 | General Progress Note ---
Assessment/Plan Status: stable Assessment/Plan: 84 year old male, presented with dizziness, shaking and lightheadedness being admitted for symptomatic bradycardia, LLOYD and dehydration #Symptomatic bradycardia - improved -Telemetry monitoring -EP cardiology consult with Dr. Newton: CTM - f/u echo -Hold bp meds -Check TSH; tsh 3+, t4 0.91 #LLOYD- prerenal, possibly superimposed on CKD - urine lytes cw post renal - obtain bladder scan -Monitor renal function -Urine lytes -Nephrology consult, Dr. Lopez -Avoid nephrotoxic medications # Hypenatremia - cont D5W - Nephrology following as above #hypoglycemia - resvolved -hold meds -Monitor glucose -check HbA1c -will d/w Dr. Cyndy castellon endocrine consultation #HTN #HLD -hold bp meds -continue atorvastatin #BPH -continue Finasteride #Depression -continue Sertraline vte ppx: heparin subq GI ppx: Not indicated Diet: reg Code status: full code. I spent 36 minutes on this encounter. >50% spent on counselling and care coordination. I spent an additional 35 minutes on non face to face review of records. Plan of care d/w RN and consultants. Subjective Date patient seen: Oct 12, 2019 Time patient seen: 12:52 Allergies: Coded Allergies: No Known Allergies (Unverified , 10/10/19) All Systems: reviewed and negative except above Subjective admit to urinating well, denies dysuria or abd pain Objective Last 24 Hour Vital Signs Date Time Temp Pulse Resp B/P (MAP) Pulse Ox O2 Delivery O2 Flow Rate FiO2 10/12/19 12:00 96.4 67 18 143/74 (97) 92 10/12/19 09:00 Room Air 10/12/19 08:00 77 10/12/19 08:00 97.0 71 18 108/62 (77) 92 10/12/19 05:40 126/69 10/12/19 05:39 71 126/69 (88) 10/12/19 04:00 97.2 66 20 121/54 (76) 95 10/12/19 04:00 60 10/12/19 00:00 72 10/12/19 00:00 97.0 75 21 132/68 (89) 92 10/11/19 21:18 133/71 10/11/19 21:17 60 133/71 (91) 10/11/19 21:00 Room Air 10/11/19 20:00 67 10/11/19 20:00 97.7 65 20 148/76 (100) 93 10/11/19 16:00 68 10/11/19 16:00 98.2 75 18 148/68 (94) 98 Intake and Output 10/11/19 10/12/19 19:00 07:00 Intake Total 1100 ml 250 ml Balance 1100 ml 250 ml Intake Oral 500 ml IV Total 600 ml 250 ml # Voids 3 4 Laboratory Tests 10/11/19 21:30: Urine Random Sodium 85, Urine Creatinine 25.7L 10/12/19 07:35: Sodium Level 149H, Potassium Level 4.0, Chloride Level 112H, Carbon Dioxide Level 28, Anion Gap 9, Blood Urea Nitrogen 63H, Creatinine 1.8H, Estimat Glomerular Filtration Rate , Glucose Level 108H, Uric Acid 1.3L, Calcium Level 8.8, Phosphorus Level 4.0, Magnesium Level 2.3, Total Bilirubin 0.8, Aspartate Amino Transf (AST/SGOT) 31, Alanine Aminotransferase (ALT/SGPT) 45, Alkaline Phosphatase 127H, Troponin I 0.033, Total Protein 6.4, Albumin 2.7L, Globulin 3.7, Albumin/Globulin Ratio 0.7L, Thyroid Stimulating Hormone (TSH) 3.941H, Free Thyroxine 0.91 Height (Feet): 5 Height (Inches): 10.00 Weight (Pounds): 200 General Appearance: no apparent distress, alert, alert oriented x3 EENT: PERRL/EOMI Cardiovascular: normal rate, regular rhythm, no JVD Respiratory/Chest: lungs clear, normal breath sounds, no respiratory distress Abdomen: non tender, soft, no organomegaly Extremities: normal inspection, no calf tenderness Edema: no edema noted Arm (L), no edema noted Arm (R), no edema noted Leg (L), no edema noted Leg (R), no edema noted Pedal (L), no edema noted Pedal (R), no edema noted Generalized Neurologic: alert Rossana Chin DO Oct 12, 2019 12:57
--- NOTE | 2019-10-12 13:20 | NUR ---
CASE MANAGEMENT: REVIEW 10/12/2019 SI: SYMPTOMATIC BRADYCARDIA / SEVERE DIZZINESS T 96.4 HR 64 RR 18 B/P 143/74 SATS 92% ON RA NA 149 CL 112 BUN 63 CR 1.8 ALP 127 IS: IV D5 @ 75 ML/HR PROSCAR PO QD FLOMAX PO Q12H : 2E TELE UNIT DCP: HOME WHEN MEDICALLY CLEARED
[2019-10-12] MEDS ORDERED: D5 1/2NS 1000ml IV ONE (13:33)
--- NOTE | 2019-10-12 13:40 | Cardiology Report ---
APPROVED REPORT EXAM: Two-dimensional and M-mode echocardiogram with Doppler and color Doppler. INDICATION Bradycardia M-Mode DIMENSIONS IVSd1.0 (0.7-1.1cm)Left Atrium (MM)3.4 (1.6-4.0cm) LVDd4.7 (3.5-5.6cm)Aortic Root3.5 (2.0-3.7cm) PWd1.0 (0.7-1.1cm)Aortic Cusp Exc.2.0 (1.5-2.0cm) LVDs2.8 (2.5-4.0cm) PWs1.8 cm Technically difficult and limited study due to poor acoustic windows. Study quality precludes accurate assessment of regional wall motion. Normal left ventricular chamber size, systolic function and wall motion to extent visualized. Left ventricular ejection fraction estimated to be grossly normal. No evidence of left ventricular hypertrophy. No evidence of pericardial effusion. All other cardiac chamber sizes are within normal limits. Focal aortic valve sclerosis with adequate cusp excursion. Thickened mitral valve leaflets with normal excursion. Mitral annulus and aortic root calcification. Pulmonic valve not visualized. Normal tricuspid valve structure. IVC is normal in size with physiological collapse. A color flow and spectral Doppler study was performed and revealed: Mild to moderate aortic regurgitation. Mild to moderate mitral regurgitation. Mitral diastolic velocities suggest mild left ventricular diastolic dysfunction (Grade I). Trace tricuspid regurgitation. Tricuspid systolic velocities suggests peak right ventricular systolic pressure of 21 mmHg.
--- NOTE | 2019-10-12 13:54 | Cardiology Report ---
APPROVED REPORT EKG Measurement Heart [id number] Sinus bradycardia Abnormal ECG
--- NOTE | 2019-10-12 15:05 | Diagnostic Imaging Report ---
EXAM: US Retroperitoneal Limited, Renal CLINICAL HISTORY: WEAK TECHNIQUE: Real-time ultrasound of the retroperitoneum (limited) with image documentation. COMPARISON: No relevant prior studies available. FINDINGS: Right kidney: Right kidney measures 9.6 cm. No hydronephrosis. Renal cyst/hypoechoic foci. Left kidney: Left kidney measures 11.4 cm. Renal cyst/hypoechoic foci. No hydronephrosis. IMPRESSION: No hydronephrosis.
--- NOTE | 2019-10-12 16:40 | Cardiology Progress Note ---
Assessment/Plan Assessment/Plan 1. Symptomatic bradycardia, resolved, 2D echo reveals normal V systolic and diastolic function. 2. History of hypertension, continue hydralazine. 3. Hyperlipidemia. On Lipitor. 4. Prerenal azotemia, with associated hypernatremia, continue free water administration. Subjective Subjective Sinus bradycardia at rate of 58. Objective Last 24 Hour Vital Signs Date Time Temp Pulse Resp B/P (MAP) Pulse Ox O2 Delivery O2 Flow Rate FiO2 10/12/19 13:20 143/74 10/12/19 12:00 56 10/12/19 12:00 96.4 67 18 143/74 (97) 92 10/12/19 09:00 Room Air 10/12/19 08:00 77 10/12/19 08:00 97.0 71 18 108/62 (77) 92 10/12/19 05:40 126/69 10/12/19 05:39 71 126/69 (88) 10/12/19 04:00 97.2 66 20 121/54 (76) 95 10/12/19 04:00 60 10/12/19 00:00 72 10/12/19 00:00 97.0 75 21 132/68 (89) 92 10/11/19 21:18 133/71 10/11/19 21:17 60 133/71 (91) 10/11/19 21:00 Room Air 10/11/19 20:00 67 10/11/19 20:00 97.7 65 20 148/76 (100) 93 Intake and Output 10/11/19 10/12/19 19:00 07:00 Intake Total 1100 ml 250 ml Balance 1100 ml 250 ml Intake Oral 500 ml IV Total 600 ml 250 ml # Voids 3 4 2D Echo: LVEF 65%, Mild AR, Normal LV diastolic Fxn, RVSP 21 mmHg Laboratory Tests Test 10/11/19 21:30 10/12/19 07:35 Urine Random Sodium 85 mmol/L (20-110) Urine Creatinine 25.7 MG/DL (30.0-125.0) L Sodium Level 149 MMOL/L (136-145) H Potassium Level 4.0 MMOL/L (3.5-5.1) Chloride Level 112 MMOL/L (98-107) H Carbon Dioxide Level 28 MMOL/L (21-32) Anion Gap 9 mmol/L (5-15) Blood Urea Nitrogen 63 mg/dL (7-18) H Creatinine 1.8 MG/DL (0.55-1.30) H Estimat Glomerular Filtration Rate mL/min (>60) Glucose Level 108 MG/DL (74-106) H Uric Acid 1.3 MG/DL (2.6-7.2) L Calcium Level 8.8 MG/DL (8.5-10.1) Phosphorus Level 4.0 MG/DL (2.5-4.9) Magnesium Level 2.3 MG/DL (1.8-2.4) Total Bilirubin 0.8 MG/DL (0.2-1.0) Aspartate Amino Transf (AST/SGOT) 31 U/L (15-37) Alanine Aminotransferase (ALT/SGPT) 45 U/L (12-78) Alkaline Phosphatase 127 U/L (46-116) H Troponin I 0.033 ng/mL (0.000-0.056) Total Protein 6.4 G/DL (6.4-8.2) Albumin 2.7 G/DL (3.4-5.0) L Globulin 3.7 g/dL Albumin/Globulin Ratio 0.7 (1.0-2.7) L Thyroid Stimulating Hormone (TSH) 3.941 uiU/mL (0.358-3.740) Free Thyroxine 0.91 NG/DL (0.76-1.46) Microbiology Date/Time Source Procedure Growth Status 10/10/19 14:52 Blood Blood Culture - Preliminary NO GROWTH AFTER 24 HOURS Resulted 10/10/19 14:45 Blood Blood Culture - Preliminary NO GROWTH AFTER 24 HOURS Resulted 10/10/19 19:57 Urine,Clean Catch Urine Culture - Preliminary Staphylococcus Aureus Resulted Objective HEENT: PERRLA, EOMI, anicteric. NECK: JVD < 5 cm, no carotid bruit. LUNGS: Clear. CARDIOVASCULAR: Shows regular S1 and S2, bradycardic with no gallop or murmur. ABDOMEN: Soft, NT/ND, + BS EXTREMITIES: No pitting edema, clubbing or cyanosis. Jesus Segovia MD Oct 12, 2019 16:40
--- NOTE | 2019-10-12 19:31 | NUR ---
HAND-OFF: Report given to Jc JOHNSON. Patient stable. Plan of care endorsed. Addendum: 10/12/19 at 1937 by CATRINA MANZANARES RN Endorsed that pt still needs to ambulate today.
--- NOTE | 2019-10-12 19:45 | Consultation ---
DATE OF CONSULTATION: 10/12/2019 NEPHROLOGY CONSULTATION CONSULTING PHYSICIAN: Osvaldo Chaparro M.D. REFERRING PHYSICIAN: Ayaka Luo M.D. REASON FOR CONSULTATION: Diabetes management. HISTORY OF PRESENT ILLNESS: This is an 84-year-old male with history of diabetes, followed as an outpatient by Dr. Hermes Naylor. His diabetes is managed by 1 shot daily of Soliqua and the dosage was reduced from 24 to 18 units on his last visit with Dr. Naylor on September 16, 2019. The patient presented to the hospital with dizziness and bradycardia. Also, glucose was 73 and A1c of 5.4. I was called to assist in the management of diabetes. HOME MEDICATIONS: 1. Proscar 5 mg daily. 2. Lipitor 80 mg daily. 3. Soliqua 18 units at bedtime. 4. Zoloft 100 mg daily. 5. Uloric 40 mg daily. 6. Amlodipine 10 mg daily. PAST MEDICAL HISTORY: 1. BPH. 2. Hyperlipidemia. 3. Hyperuricemia. 4. Hypertension. 5. Diabetes. FAMILY HISTORY: Noncontributory. SOCIAL HISTORY: Lives with his . No smoking, alcohol, or drug use. He has a son, who is very involved in his care. REVIEW OF SYSTEMS: A 12-point review of system was performed and the pertinent positives and negatives as mentioned in present illness. LABORATORY VALUES: Uric acid of 1. TSH of 3.9, as well as 3.6. Free T4 of 0.91. Sodium 149, potassium 4, chloride 112, bicarb 28, BUN 63, creatinine 1.8, and glucose 108. Hemoglobin A1c of 5.4. WBC 4, hemoglobin 10, hematocrit 30, and platelets of 177,000. PHYSICAL EXAMINATION: GENERAL: He is awake and alert. VITAL SIGNS: Blood pressure is 132/80, heart rate 62, and respiratory rate of 18. HEENT: Pupils are reactive to light. Sclerae was anicteric. NECK: No jugular venous distention. No thyromegaly. No bruit. LUNGS: Clear. HEART: Regular rate and rhythm. ABDOMEN: Positive bowel sounds. Soft. EXTREMITIES: No clubbing, cyanosis, or edema. DIAGNOSES: 1. Symptomatic bradycardia. 2. Acute kidney injury. 3. Diabetes with hypoglycemia. 4. Mildly elevated TSH with normal free T4 DISCUSSION: The blood glucose already stabilized. The patient should stay off of Soliqua. At home, he is on 18 units a day and the pen cannot administer any number less than 15 units. So, I asked him to hold off on Soliqua when he is discharged and do not resume. We will arrange for a close follow-up with Dr. Naylor for adjustment of diabetic regimen. For the time being during the stay, glucose monitoring with low-dose insulin sliding scale only if needed. Hypoglycemia protocol is in order. TSH is barely elevated. This is only 1 out of 2 values. A second value is normal. Free T4 is normal. Basically, the patient is euthyroid and the bradycardia has nothing to do with his thyroid status. He is not a candidate for thyroid hormone replacement either. Thank you, Dr. Luo, for the courtesy of this consultation. I will follow the patient during the stay and after discharge, I will follow up with his primary art education professor, Dr. Hermes Naylor. Osvaldo Chaparro M.D. DR: MISBAH JOB#: [id number] CC: FAINA
--- NOTE | 2019-10-12 20:12 | NUR ---
NURSE NOTES: Received written report from ELIZABETH Monaco. Patient in bed resting, able to follow commands, and make needs known. Patient without complaints at this time. Sinus Rhythm on monitor, asymptomatic. Will continue to monitor.
[2019-10-13] VITALS: BP 107/53
[2019-10-13 04:00] VITALS: BP 140/69
[2019-10-13] MEDS: HydrALAZINE 10mg Tab ORAL SCH ×3 (06:38→21:58)
--- NOTE | 2019-10-13 07:28 | NUR ---
NURSE NOTES: Received report from ELIZABETH Barajas. Patient in bed resting, no active s/s cardiac, respiratory distress noticed at this time. Patient on room air, SR with HR 68. IV on right FA 20G, asymptomatic, patent, intact, IV fluid running as prescribed rate. Bed in lowest position, side rails upx2, call light within reach, bed alarm on. Will continue to monitor.
--- NOTE | 2019-10-13 07:31 | NUR ---
HAND-OFF: Report given to Sarah JOHNSON. Patient in bed resting. Stable at Hand-off.
[2019-10-13 08:00] VITALS: BP 127/63
[2019-10-13 08:11] LABS: EOSINOPHILS % (AUTO) 5.6 % (0.0-3.0); HEMATOCRIT 29.3 % (42.0-52.0); LYMPHOCYTES % (AUTO) 16.7 % (20.0-45.0); MEAN CORPUSCULAR VOLUME 95 FL (80-99); MONOCYTES % (AUTO) 9.1 % (1.0-10.0); NEUTROPHILS % (AUTO) 67.6 % (45.0-75.0); PLATELET COUNT 172 K/UL (150-450); RED BLOOD COUNT 3.08 M/UL (4.70-6.10); RED CELL DISTRIBUTION WIDTH 17.2 % (11.6-14.8); WHITE BLOOD COUNT 5.2 K/UL (4.8-10.8)
[2019-10-13 08:35] LABS: ALANINE AMINOTRANSFERASE 42 U/L (12-78); ALBUMIN 2.7 G/DL (3.4-5.0); ALBUMIN/GLOBULIN RATIO 0.7 (1.0-2.7); ALKALINE PHOSPHATASE 130 U/L (46-116); ANION GAP 6 mmol/L (5-15); ASPARTATE AMINO TRANSFERASE 28 U/L (15-37); BILIRUBIN,TOTAL 0.9 MG/DL (0.2-1.0); BLOOD UREA NITROGEN 57 mg/dL (7-18); CALCIUM 8.5 MG/DL (8.5-10.1); CARBON DIOXIDE 28 MMOL/L (21-32); CHLORIDE 108 MMOL/L (98-107); CREATININE 1.9 MG/DL (0.55-1.30); PHOSPHORUS 3.7 MG/DL (2.5-4.9); POTASSIUM 3.9 MMOL/L (3.5-5.1); SODIUM 142 MMOL/L (136-145)
[2019-10-13] MEDS: Tamsulosin 0.4mg cap ORAL SCH ×2 (08:35→21:57)
[2019-10-13] MEDS: Sertraline 50mg tab ORAL SCH (08:36)
[2019-10-13] MEDS: Heparin 5000 units/ml inj SUBQ SCH ×2 (08:40→22:00)
[2019-10-13] MEDS ORDERED: Liothyronine 5mcg tab ORAL SCH (09:00)
--- NOTE | 2019-10-13 09:34 | Nephrology Progress Note ---
Assessment/Plan Problem List: (1) LLOYD (acute kidney injury) (2) Bradycardia (3) BPH (benign prostatic hyperplasia) (4) HTN (hypertension) (5) Anemia Assessment LLOYD (acute kidney injury) ? superimposed on CKD Symptomatic bradycardia DM / Hypoglycemia HTN BPH Depression Anemia Plan flomax IV fluids Low dose hydralazine Subjective ROS Limited/Unobtainable: No Constitutional: Reports: malaise, weakness Objective Objective Last 24 Hour Vital Signs Date Time Temp Pulse Resp B/P (MAP) Pulse Ox O2 Delivery O2 Flow Rate FiO2 10/13/19 06:38 140/69 10/13/19 04:00 68 10/13/19 04:00 97.3 70 19 140/69 (92) 90 10/13/19 00:00 72 10/13/19 00:00 97.5 64 20 107/53 (71) 91 10/12/19 21:30 119/46 10/12/19 21:00 Room Air 10/12/19 20:00 68 10/12/19 20:00 98.1 73 20 136/63 (87) 98 10/12/19 16:00 67 10/12/19 16:00 97.1 64 20 125/70 (88) 95 10/12/19 13:20 143/74 10/12/19 12:00 56 10/12/19 12:00 96.4 67 18 143/74 (97) 92 Intake and Output 10/12/19 10/13/19 19:00 07:00 Intake Total 1075 ml 703.75 ml Balance 1075 ml 703.75 ml Intake Oral 300 ml IV Total 775 ml 703.75 ml # Voids 2 3 # Bowel Movements 1 Laboratory Tests 10/13/19 05:30: White Blood Count 5.2, Red Blood Count 3.08L, Hemoglobin 10.0L, Hematocrit 29.3L , Mean Corpuscular Volume 95, Mean Corpuscular Hemoglobin 32.5H, Mean Corpuscular Hemoglobin Concent 34.2, Red Cell Distribution Width 17.2H, Platelet Count 172, Mean Platelet Volume 5.6L, Neutrophils (%) (Auto) 67.6, Lymphocytes (%) (Auto) 16.7L, Monocytes (%) (Auto) 9.1, Eosinophils (%) (Auto) 5.6H, Basophils (%) (Auto) 1.0, Sodium Level 142, Potassium Level 3.9, Chloride Level 108H, Carbon Dioxide Level 28, Anion Gap 6, Blood Urea Nitrogen 57H, Creatinine 1.9H, Estimat Glomerular Filtration Rate , Glucose Level 116H, Uric Acid 1.6L, Calcium Level 8.5, Phosphorus Level 3.7, Magnesium Level 2.0, Total Bilirubin 0.9, Aspartate Amino Transf (AST/SGOT) 28, Alanine Aminotransferase ( ALT/SGPT) 42, Alkaline Phosphatase 130H, Total Protein 6.4, Albumin 2.7L, Globulin 3.7, Albumin/Globulin Ratio 0.7L Height (Feet): 5 Height (Inches): 10.00 Weight (Pounds): 200 General Appearance: no apparent distress Cardiovascular: normal rate Respiratory/Chest: decreased breath sounds Abdomen: soft Objective no change Nabil Lopez MD Oct 13, 2019 09:34
--- NOTE | 2019-10-13 10:44 | General Progress Note ---
Assessment/Plan Problem List: (1) Symptomatic bradycardia ICD Codes: R00.1 - Bradycardia, unspecified SNOMED: 30607353, 399652320 (2) LLOYD (acute kidney injury) ICD Codes: N17.9 - Acute kidney failure, unspecified SNOMED: 0166430, 57197761 (3) Hypoglycemia ICD Codes: E16.2 - Hypoglycemia, unspecified SNOMED: 622493500 (4) HTN (hypertension) ICD Codes: I10 - Essential (primary) hypertension SNOMED: 52061019 (5) BPH (benign prostatic hyperplasia) ICD Codes: N40.0 - Benign prostatic hyperplasia without lower urinary tract symptoms SNOMED: 099200633 Status: stable Assessment/Plan: no need for scheduled diabetic medications or insulin continue to monitor glucose hypoglycemia protocol in order followup with Dr Hermes Naylor after DC Subjective Allergies: Coded Allergies: No Known Allergies (Unverified , 10/10/19) All Systems: reviewed and negative except above Subjective events noted no recurrence of hypoglycemia Item Value Date Time Glucose Level 116 MG/DL H 10/13/19 0530 Glucose Level 108 MG/DL H 10/12/19 0735 Objective Last 24 Hour Vital Signs Date Time Temp Pulse Resp B/P (MAP) Pulse Ox O2 Delivery O2 Flow Rate FiO2 10/13/19 09:00 Room Air 10/13/19 08:00 97.0 60 18 127/63 (84) 92 10/13/19 08:00 60 10/13/19 06:38 140/69 10/13/19 04:00 68 10/13/19 04:00 97.3 70 19 140/69 (92) 90 10/13/19 00:00 72 10/13/19 00:00 97.5 64 20 107/53 (71) 91 10/12/19 21:30 119/46 10/12/19 21:00 Room Air 10/12/19 20:00 68 10/12/19 20:00 98.1 73 20 136/63 (87) 98 10/12/19 16:00 67 10/12/19 16:00 97.1 64 20 125/70 (88) 95 10/12/19 13:20 143/74 10/12/19 12:00 56 10/12/19 12:00 96.4 67 18 143/74 (97) 92 Intake and Output 10/12/19 10/13/19 19:00 07:00 Intake Total 1075 ml 703.75 ml Balance 1075 ml 703.75 ml Intake Oral 300 ml IV Total 775 ml 703.75 ml # Voids 2 3 # Bowel Movements 1 Laboratory Tests 10/13/19 05:30: White Blood Count 5.2, Red Blood Count 3.08L, Hemoglobin 10.0L, Hematocrit 29.3L , Mean Corpuscular Volume 95, Mean Corpuscular Hemoglobin 32.5H, Mean Corpuscular Hemoglobin Concent 34.2, Red Cell Distribution Width 17.2H, Platelet Count 172, Mean Platelet Volume 5.6L, Neutrophils (%) (Auto) 67.6, Lymphocytes (%) (Auto) 16.7L, Monocytes (%) (Auto) 9.1, Eosinophils (%) (Auto) 5.6H, Basophils (%) (Auto) 1.0, Sodium Level 142, Potassium Level 3.9, Chloride Level 108H, Carbon Dioxide Level 28, Anion Gap 6, Blood Urea Nitrogen 57H, Creatinine 1.9H, Estimat Glomerular Filtration Rate , Glucose Level 116H, Uric Acid 1.6L, Calcium Level 8.5, Phosphorus Level 3.7, Magnesium Level 2.0, Total Bilirubin 0.9, Aspartate Amino Transf (AST/SGOT) 28, Alanine Aminotransferase ( ALT/SGPT) 42, Alkaline Phosphatase 130H, Total Protein 6.4, Albumin 2.7L, Globulin 3.7, Albumin/Globulin Ratio 0.7L Height (Feet): 5 Height (Inches): 10.00 Weight (Pounds): 200 General Appearance: no apparent distress Neck: normal alignment Cardiovascular: normal rate Abdomen: normal bowel sounds Objective Current Medications Medications (Trade) Dose Ordered Sig/Livia Route PRN Reason Start Time Stop Time Status Last Admin Dose Admin Acetaminophen (Tylenol) 650 mg Q4H PRN ORAL Mild Pain (Pain Scale 1-3) 10/10/19 19:00 11/09/19 18:59 Dextrose 1,000 ml @ 75 mls/hr [id number] IV 10/12/19 11:45 11/11/19 11:44 10/13/19 01:37 Dextrose (Dextrose 50%) 25 ml Q30M PRN IV Hypoglycemia 10/10/19 19:00 11/09/19 18:59 Dextrose (Dextrose 50%) 50 ml Q30M PRN IV Hypoglycemia 10/10/19 19:00 11/09/19 18:59 Finasteride (Proscar) 5 mg DAILY ORAL 10/11/19 09:00 11/10/19 08:59 10/13/19 08:35 Heparin Sodium (Porcine) (Heparin 5000 units/ml) 5,000 units EVERY 12 HOURS SUBQ 10/10/19 22:00 11/09/19 21:59 10/13/19 08:40 Hydralazine HCl (Apresoline) 10 mg Q8HR ORAL 10/11/19 22:00 11/10/19 21:59 10/13/19 06:38 Liothyronine Sodium (Cytomel) 5 mcg DAILY ORAL 10/13/19 09:00 11/12/19 08:59 10/13/19 08:36 Sertraline HCl (Zoloft) 25 mg DAILY ORAL 10/11/19 09:00 11/10/19 08:59 10/13/19 08:36 Tamsulosin HCl (Flomax) 0.4 mg Q12HR ORAL 10/11/19 21:00 11/10/19 20:59 10/13/19 08:35 Osvaldo Chaparro MD Oct 13, 2019 10:44
[2019-10-13 12:00] VITALS: BP 111/60
--- NOTE | 2019-10-13 12:26 | General Progress Note ---
Assessment/Plan Status: stable Assessment/Plan: 84 year old male, presented with dizziness, shaking and lightheadedness being admitted for symptomatic bradycardia, LLOYD and dehydration #Symptomatic bradycardia -resolved -Telemetry monitoring -EP cardiology consult with Dr. Newton: CTM - f/u echo: Within normal limits -Hold bp meds -Check TSH; tsh 3+, t4 0.91 #MRSA bacteruria - no fevers/chills/dysuria, mild leukopenia, presented sx's above that resolved without abx - ua: + esterase, neg nitrite, wbc 10-15 - culture: >100,000 MRSA - ID consult: #LLOYD- prerenal, possibly superimposed on CKD - urine lytes cw post renal - obtain bladder scan: 0 -Monitor renal function -Urine lytes -Nephrology consult, Dr. Lopez -Avoid nephrotoxic medications # Hypenatremia - cont D5W - Nephrology following as above #hypoglycemia - resvolved -hold meds -Monitor glucose -check HbA1c -will d/w Dr. Naylor reg endocrine consultation #HTN #HLD -hold bp meds -continue atorvastatin #BPH -continue Finasteride #Depression -continue Sertraline vte ppx: heparin subq GI ppx: Not indicated Diet: reg Code status: full code. I spent 36 minutes on this encounter. >50% spent on counselling and care coordination. I spent an additional 35 minutes on non face to face review of records. Plan of care d/w RN and consultants. Subjective Date patient seen: Oct 13, 2019 Time patient seen: 12:23 Allergies: Coded Allergies: No Known Allergies (Unverified , 10/10/19) Subjective Continues to deny dizziness, chest pain, shortness of breath, dysuria, abdominal pain Objective Last 24 Hour Vital Signs Date Time Temp Pulse Resp B/P (MAP) Pulse Ox O2 Delivery O2 Flow Rate FiO2 10/13/19 09:00 Room Air 10/13/19 08:00 97.0 60 18 127/63 (84) 92 10/13/19 08:00 60 10/13/19 06:38 140/69 10/13/19 04:00 68 10/13/19 04:00 97.3 70 19 140/69 (92) 90 10/13/19 00:00 72 10/13/19 00:00 97.5 64 20 107/53 (71) 91 10/12/19 21:30 119/46 10/12/19 21:00 Room Air 10/12/19 20:00 68 10/12/19 20:00 98.1 73 20 136/63 (87) 98 10/12/19 16:00 67 10/12/19 16:00 97.1 64 20 125/70 (88) 95 10/12/19 13:20 143/74 Intake and Output 10/12/19 10/13/19 19:00 07:00 Intake Total 1075 ml 703.75 ml Balance 1075 ml 703.75 ml Intake Oral 300 ml IV Total 775 ml 703.75 ml # Voids 2 3 # Bowel Movements 1 Laboratory Tests 10/13/19 05:30: White Blood Count 5.2, Red Blood Count 3.08L, Hemoglobin 10.0L, Hematocrit 29.3L , Mean Corpuscular Volume 95, Mean Corpuscular Hemoglobin 32.5H, Mean Corpuscular Hemoglobin Concent 34.2, Red Cell Distribution Width 17.2H, Platelet Count 172, Mean Platelet Volume 5.6L, Neutrophils (%) (Auto) 67.6, Lymphocytes (%) (Auto) 16.7L, Monocytes (%) (Auto) 9.1, Eosinophils (%) (Auto) 5.6H, Basophils (%) (Auto) 1.0, Sodium Level 142, Potassium Level 3.9, Chloride Level 108H, Carbon Dioxide Level 28, Anion Gap 6, Blood Urea Nitrogen 57H, Creatinine 1.9H, Estimat Glomerular Filtration Rate , Glucose Level 116H, Uric Acid 1.6L, Calcium Level 8.5, Phosphorus Level 3.7, Magnesium Level 2.0, Total Bilirubin 0.9, Aspartate Amino Transf (AST/SGOT) 28, Alanine Aminotransferase ( ALT/SGPT) 42, Alkaline Phosphatase 130H, Total Protein 6.4, Albumin 2.7L, Globulin 3.7, Albumin/Globulin Ratio 0.7L Height (Feet): 5 Height (Inches): 10.00 Weight (Pounds): 200 Objective GENERAL: No acute distress, appears comfortable, alert HEENT: NCAT, non-icteric eyes, pupils PERRLA Neck: No cervical lymphadenopathy, trachea midline CV: Regular rate and rhythm, no murmurs rubs or gallops RESP: Clear to auscultation bilaterally, no wheezes/rhonchi/crackles ABD: soft, non-distended, no TTP EXT: Normal muscle tone, +5/5 muscle strength NEURO: No obvious deficits, alert and oriented x3 Rossana Chin DO Oct 13, 2019 12:26
[2019-10-13 16:00] VITALS: BP 136/67
--- NOTE | 2019-10-13 18:26 | NUR ---
NURSE NOTES: Dr. Verdin at the bedside, made aware of MRSA urine, per MD already aware of result.
--- NOTE | 2019-10-13 19:23 | NUR ---
HAND-OFF: Report given to ELIZABETH Capps.
--- NOTE | 2019-10-13 19:24 | NUR ---
NURSE NOTES: Received pt from ELIZABETH Smith. Pt is awake and resting in bed in no distress. Iv site intact and patent. Bed locked in lowest position, call light within reach, bed alarm on. Will continue with plan of care.
--- NOTE | 2019-10-13 19:48 | Infectious Diseases Prog Note ---
Assessment/Plan Assessment/Plan Full consult dictated: A) 1) ? mrsa uti vs contaminant/colonization 2) asymptomatic 3) no leukocytosis or fevers, blood cultures negative, echo without vegetations mentioned 4) no recent urological intervention, no kirkpatrick 5) bradycardia 6) pmh noted 7) allergies - nkda P) 1) hold off on mrsa treatment for now 2) recheck urinalysis with reflex 3) monitor patient clinically 4) thank you Subjective Allergies: Coded Allergies: No Known Allergies (Unverified , 10/10/19) Objective Vital Signs Last 24 Hour Vital Signs Date Time Temp Pulse Resp B/P (MAP) Pulse Ox O2 Delivery O2 Flow Rate FiO2 10/13/19 16:00 56 10/13/19 16:00 96.4 58 18 136/67 (90) 94 10/13/19 13:09 111/60 10/13/19 12:00 48 10/13/19 12:00 96.4 53 20 111/60 (77) 94 10/13/19 09:00 Room Air 10/13/19 08:00 97.0 60 18 127/63 (84) 92 10/13/19 08:00 60 10/13/19 06:38 140/69 10/13/19 04:00 68 10/13/19 04:00 97.3 70 19 140/69 (92) 90 10/13/19 00:00 72 10/13/19 00:00 97.5 64 20 107/53 (71) 91 10/12/19 21:30 119/46 10/12/19 21:00 Room Air 10/12/19 20:00 68 10/12/19 20:00 98.1 73 20 136/63 (87) 98 Height (Feet): 5 Height (Inches): 10.00 Weight (Pounds): 200 Microbiology Date/Time Source Procedure Growth Status 10/10/19 19:57 Urine,Clean Catch Urine Culture - Final Staphylococcus Aureus - Mrsa Complete Laboratory Tests Test 10/13/19 05:30 White Blood Count 5.2 K/UL (4.8-10.8) Red Blood Count 3.08 M/UL (4.70-6.10) L Hemoglobin 10.0 G/DL (14.2-18.0) L Hematocrit 29.3 % (42.0-52.0) L Mean Corpuscular Volume 95 FL (80-99) Mean Corpuscular Hemoglobin 32.5 PG (27.0-31.0) H Mean Corpuscular Hemoglobin Concent 34.2 G/DL (32.0-36.0) Red Cell Distribution Width 17.2 % (11.6-14.8) H Platelet Count 172 K/UL (150-450) Mean Platelet Volume 5.6 FL (6.5-10.1) L Neutrophils (%) (Auto) 67.6 % (45.0-75.0) Lymphocytes (%) (Auto) 16.7 % (20.0-45.0) L Monocytes (%) (Auto) 9.1 % (1.0-10.0) Eosinophils (%) (Auto) 5.6 % (0.0-3.0) H Basophils (%) (Auto) 1.0 % (0.0-2.0) Sodium Level 142 MMOL/L (136-145) Potassium Level 3.9 MMOL/L (3.5-5.1) Chloride Level 108 MMOL/L (98-107) H Carbon Dioxide Level 28 MMOL/L (21-32) Anion Gap 6 mmol/L (5-15) Blood Urea Nitrogen 57 mg/dL (7-18) H Creatinine 1.9 MG/DL (0.55-1.30) H Estimat Glomerular Filtration Rate mL/min (>60) Glucose Level 116 MG/DL (74-106) H Uric Acid 1.6 MG/DL (2.6-7.2) L Calcium Level 8.5 MG/DL (8.5-10.1) Phosphorus Level 3.7 MG/DL (2.5-4.9) Magnesium Level 2.0 MG/DL (1.8-2.4) Total Bilirubin 0.9 MG/DL (0.2-1.0) Aspartate Amino Transf (AST/SGOT) 28 U/L (15-37) Alanine Aminotransferase (ALT/SGPT) 42 U/L (12-78) Alkaline Phosphatase 130 U/L (46-116) H Total Protein 6.4 G/DL (6.4-8.2) Albumin 2.7 G/DL (3.4-5.0) L Globulin 3.7 g/dL Albumin/Globulin Ratio 0.7 (1.0-2.7) L Current Medications Medications (Trade) Dose Ordered Sig/Livia Route PRN Reason Start Time Stop Time Status Last Admin Dose Admin Acetaminophen (Tylenol) 650 mg Q4H PRN ORAL Mild Pain (Pain Scale 1-3) 10/10/19 19:00 11/09/19 18:59 Dextrose 1,000 ml @ 75 mls/hr [id number] IV 10/12/19 11:45 11/11/19 11:44 10/13/19 14:37 Dextrose (Dextrose 50%) 25 ml Q30M PRN IV Hypoglycemia 10/10/19 19:00 11/09/19 18:59 Dextrose (Dextrose 50%) 50 ml Q30M PRN IV Hypoglycemia 10/10/19 19:00 11/09/19 18:59 Finasteride (Proscar) 5 mg DAILY ORAL 10/11/19 09:00 11/10/19 08:59 10/13/19 08:35 Heparin Sodium (Porcine) (Heparin 5000 units/ml) 5,000 units EVERY 12 HOURS SUBQ 10/10/19 22:00 11/09/19 21:59 10/13/19 08:40 Hydralazine HCl (Apresoline) 10 mg Q8HR ORAL 10/11/19 22:00 11/10/19 21:59 10/13/19 13:09 Liothyronine Sodium (Cytomel) 5 mcg DAILY ORAL 10/13/19 09:00 11/12/19 08:59 10/13/19 08:36 Sertraline HCl (Zoloft) 25 mg DAILY ORAL 10/11/19 09:00 11/10/19 08:59 10/13/19 08:36 Tamsulosin HCl (Flomax) 0.4 mg Q12HR ORAL 10/11/19 21:00 11/10/19 20:59 10/13/19 08:35 Fabio Verdin MD Oct 13, 2019 19:48
[2019-10-13 20:00] VITALS: BP 132/66
--- NOTE | 2019-10-13 21:45 | Consultation ---
DATE OF CONSULTATION: 10/13/2019 INFECTIOUS DISEASES CONSULTATION ATTENDING PHYSICIAN: Ayaka Luo M.D. REFERRING PHYSICIAN: Jordin Kline M.D. REASON FOR CONSULTATION: Possible MRSA UTI. CHIEF COMPLAINT: The patient's chief complaint coming to the hospital is symptomatic bradycardia and severe dizziness. HISTORY OF PRESENT ILLNESS: This is an 84-year-old male, who comes to [facility] with bradycardia and symptomatic dizziness that was severe. The patient was seen by Cardiology and workup was initiated. Blood cultures are negative to date at 48 hours finalized. The patient was mildly leukopenic, but he had no fevers. The patient had a urinalysis that had 10 to 15 white blood cells and also 3+ leukocyte esterase grew out greater than 100,000 MRSA organisms. The patient is asymptomatic without frequency, dysuria, CVA tenderness, or fevers. Infectious Diseases consultation is requested for further management. The patient has possible MRSA UTI. REVIEW OF SYSTEMS: GENERAL: The patient came in with bradycardia and dizziness. He has no fever or chills. Maybe he has some fatigue. No focal weakness. He is alert and responsive. HEAD AND NECK: No head pain or neck pain. CARDIAC: No chest pain. GASTROINTESTINAL: No nausea, vomiting, abdominal pain, or diarrhea. GENITOURINARY: No frequency, no dysuria, no CVA tenderness. He has had no recent Chen or urological intervention. PULMONARY: No congestion, short of breath, or mild secretions. SKIN: No rash. EXTREMITIES: No pain. NEUROLOGIC: No seizures. He did have dizziness coming in. PAST MEDICAL HISTORY: The patient has past medical history of following. The patient has past medical history of bradycardia and dizziness. He has elevated creatinine and chronic renal failure. He has hypertension. He has diabetes. He has hyperlipidemia, BPH, depression, history of multiple spinal surgeries, depression, BPH, hyperlipidemia, diabetes, and hypertension. Again, bradycardia and dizziness. ALLERGIES: No known drug allergies. No antibiotic allergies. SOCIAL HISTORY: Negative for smoking, alcohol, or drug abuse. FAMILY HISTORY: Noncontributory. MEDICATIONS: Upon reviewing the MAR outside the hospital, he is on sertraline, atorvastatin, amlodipine, and finasteride. Medications here upon reviewing the MAR, he is on Cytomel, hydralazine, Flomax, finasteride, sertraline, heparin, and acetaminophen. Re-conciliated medications, he is on outside medications :amlodipine, atorvastatin, sertraline, and finasteride. PHYSICAL EXAMINATION: VITAL SIGNS: Temperature 96.4 degrees, pulse rate 58, respiratory rate 18, blood pressure 136/67, and saturation 94%. GENERAL: Alert and responsive, no acute distress. HEAD AND NECK: Oral exam, no thrush. Eye exam, no icterus. Normocephalic. NECK: Supple. No JVD. No icterus or thrush. HEART: Regular. No gallop or murmur. Bradycardic. No friction rub. ABDOMEN: Soft. Positive bowel sounds. Nontender. LUNGS: Clear bilaterally. No rhonchi or rales. SKIN: No rash. MUSCULOSKELETAL: No effusion. Legs are without cellulitis. PERIPHERAL VASCULAR: No cyanosis. GENITOURINARY: No CVA tenderness. No Chen. LINE SITES: Without phlebitis. NEUROLOGIC: Intact. Alert and oriented. LABORATORY DATA: UA had 3+ leukocyte esterase, 10 to 15 white blood cells. Creatinine is 1.9. White count 5.2 and hemoglobin 11.0. Cultures, blood cultures are negative to date at 48 hours. This is on admission and urine culture grew out MRSA sensitive to tetracycline, Bactrim, Vanco, and was greater than 100,000 organisms. IMAGING STUDIES: Echo was reviewed and it showed no mention of vegetations. It did show aortic regurgitation with mild mitral regurgitation. Report no mention of vegetations. ASSESSMENT AND PLAN: 1. The patient has pyuria and also bacteriuria secondary to methicillin-resistant Staphylococcus aureus organism. There is question if the patient has methicillin-resistant Staphylococcus aureus urinary tract infection. There was greater than 100,000 MRSA growing. However, the patient is asymptomatic without any dysuria, frequency, CVA, tenderness, fevers, or leukocytosis. He has had no recent urological intervention and has no Chen currently. With regards to recent guidelines, treatment would be considered in his case if there was urological intervention that was planned urological procedure. In addition, he is not a renal transplant patient, which also will be considered for treatment. Because he is asymptomatic and no urological procedure is planned, at this time I favor not to treat the MRSA in the urine culture and would consider this asymptomatic bacteriuria. Since this is MRSA, must consider also other etiology or source for bacteremia. However, the patient's blood cultures are negative. Echo showed no vegetations. I would continue to observe the patient at this time. We will also consider getting repeat urinalysis and culture to see if this is a one time contaminant and see if the burden of the white cells increases in the followup urinalysis. 2. Elevated creatinine, chronic renal failure. 3. Asymptomatic bradycardia. 4. Dizziness. 5. Anemia. 6. Diabetes. 7. Hypertension. 8. Hyperlipidemia. 9. Benign prostatic hypertrophy. 10. Depression. 11. History of multiple spinal cord surgery. 12. No allergies. 13. Social history. 14. Family history noncontributory. 15. MAR was noted. 16. Case discussed with RN. 17. Continue treatment per primary consultants. Fabio Verdin M.D. DR: Jacek JOB#: [id number] CC: FAINA
--- NOTE | 2019-10-13 22:12 | Cardiology Progress Note ---
Assessment/Plan Assessment/Plan 1. Symptomatic bradycardia, resolved, 2D echo reveals normal V systolic and diastolic function. 2. History of hypertension, continue hydralazine. 3. Hyperlipidemia. On Lipitor. 4. Prerenal azotemia, improving. 5. Hypernatremia, resolved. Subjective Subjective Sinus bradycardia at rate of 56. Objective Last 24 Hour Vital Signs Date Time Temp Pulse Resp B/P (MAP) Pulse Ox O2 Delivery O2 Flow Rate FiO2 10/13/19 21:58 132/66 10/13/19 16:00 56 10/13/19 16:00 96.4 58 18 136/67 (90) 94 10/13/19 13:09 111/60 10/13/19 12:00 48 10/13/19 12:00 96.4 53 20 111/60 (77) 94 10/13/19 09:00 Room Air 10/13/19 08:00 97.0 60 18 127/63 (84) 92 10/13/19 08:00 60 10/13/19 06:38 140/69 10/13/19 04:00 68 10/13/19 04:00 97.3 70 19 140/69 (92) 90 10/13/19 00:00 72 10/13/19 00:00 97.5 64 20 107/53 (71) 91 Intake and Output 10/12/19 10/13/19 18:59 06:59 Intake Total 1050 ml 778.75 ml Balance 1050 ml 778.75 ml Intake Oral 300 ml IV Total 750 ml 778.75 ml # Voids 2 3 # Bowel Movements 1 2D Echo: LVEF 65%, Mild AR, Normal LV diastolic Fxn, RVSP 21 mmHg Laboratory Tests Test 10/13/19 05:30 White Blood Count 5.2 K/UL (4.8-10.8) Red Blood Count 3.08 M/UL (4.70-6.10) L Hemoglobin 10.0 G/DL (14.2-18.0) L Hematocrit 29.3 % (42.0-52.0) L Mean Corpuscular Volume 95 FL (80-99) Mean Corpuscular Hemoglobin 32.5 PG (27.0-31.0) H Mean Corpuscular Hemoglobin Concent 34.2 G/DL (32.0-36.0) Red Cell Distribution Width 17.2 % (11.6-14.8) H Platelet Count 172 K/UL (150-450) Mean Platelet Volume 5.6 FL (6.5-10.1) L Neutrophils (%) (Auto) 67.6 % (45.0-75.0) Lymphocytes (%) (Auto) 16.7 % (20.0-45.0) L Monocytes (%) (Auto) 9.1 % (1.0-10.0) Eosinophils (%) (Auto) 5.6 % (0.0-3.0) H Basophils (%) (Auto) 1.0 % (0.0-2.0) Sodium Level 142 MMOL/L (136-145) Potassium Level 3.9 MMOL/L (3.5-5.1) Chloride Level 108 MMOL/L (98-107) H Carbon Dioxide Level 28 MMOL/L (21-32) Anion Gap 6 mmol/L (5-15) Blood Urea Nitrogen 57 mg/dL (7-18) H Creatinine 1.9 MG/DL (0.55-1.30) H Estimat Glomerular Filtration Rate mL/min (>60) Glucose Level 116 MG/DL (74-106) H Uric Acid 1.6 MG/DL (2.6-7.2) L Calcium Level 8.5 MG/DL (8.5-10.1) Phosphorus Level 3.7 MG/DL (2.5-4.9) Magnesium Level 2.0 MG/DL (1.8-2.4) Total Bilirubin 0.9 MG/DL (0.2-1.0) Aspartate Amino Transf (AST/SGOT) 28 U/L (15-37) Alanine Aminotransferase (ALT/SGPT) 42 U/L (12-78) Alkaline Phosphatase 130 U/L (46-116) H Total Protein 6.4 G/DL (6.4-8.2) Albumin 2.7 G/DL (3.4-5.0) L Globulin 3.7 g/dL Albumin/Globulin Ratio 0.7 (1.0-2.7) L Objective HEENT: PERRLA, EOMI, anicteric. NECK: JVD < 5 cm, no carotid bruit. LUNGS: Clear. CARDIOVASCULAR: Shows regular S1 and S2, bradycardic with no gallop or murmur. ABDOMEN: Soft, NT/ND, + BS EXTREMITIES: No pitting edema, clubbing or cyanosis. Jesus Segovia MD Oct 13, 2019 22:12
[2019-10-14] VITALS: BP 111/51
[2019-10-14 04:00] VITALS: BP 132/65
[2019-10-14] MEDS: HydrALAZINE 10mg Tab ORAL SCH ×2 (06:24→14:00)
[2019-10-14 07:02] LABS: BASOPHILS % (AUTO) 1.1 % (0.0-2.0); EOSINOPHILS % (AUTO) 6.9 % (0.0-3.0); HEMATOCRIT 27.8 % (42.0-52.0); HEMOGLOBIN 9.3 G/DL (14.2-18.0); LYMPHOCYTES % (AUTO) 22.2 % (20.0-45.0); MEAN CORPUSCULAR VOLUME 95 FL (80-99); MONOCYTES % (AUTO) 10.8 % (1.0-10.0); PLATELET COUNT 164 K/UL (150-450); RED BLOOD COUNT 2.92 M/UL (4.70-6.10); RED CELL DISTRIBUTION WIDTH 16.9 % (11.6-14.8); WHITE BLOOD COUNT 5.8 K/UL (4.8-10.8)
--- NOTE | 2019-10-14 07:07 | NUR ---
HAND-OFF: Report given to ELIZABETH Smith. Pt is awake and resting in bed, in no acute distress. Endorsed plan of care.
[2019-10-14 07:19] LABS: ANION GAP 4 mmol/L (5-15); BLOOD UREA NITROGEN 57 mg/dL (7-18); CALCIUM 8.5 MG/DL (8.5-10.1); CARBON DIOXIDE 29 MMOL/L (21-32); CHLORIDE 105 MMOL/L (98-107); CREATININE 1.9 MG/DL (0.55-1.30); POTASSIUM 3.8 MMOL/L (3.5-5.1); SODIUM 138 MMOL/L (136-145)
--- NOTE | 2019-10-14 07:32 | NUR ---
NURSE NOTES: Received report from ELIZABETH Capps. Patient in bed resting, no active s/s cardiac, respiratory distress noticed at this time. Patient AOX4, SR with HR 64, on room air. Endorsed need of urine collection. IV on right FA 20G, asymptomatic, patent, intact, IV fluid running as prescribed rate. Bed in lowest position, side rails upx2, call light within reach. Will continue to monitor.
[2019-10-14 08:00] VITALS: BP 135/58
[2019-10-14] MEDS: Heparin 5000 units/ml inj SUBQ SCH (09:00)
--- NOTE | 2019-10-14 09:16 | General Progress Note ---
Assessment/Plan Problem List: (1) Symptomatic bradycardia ICD Codes: R00.1 - Bradycardia, unspecified SNOMED: 33778028, [id number] (2) Hypoglycemia ICD Codes: E16.2 - Hypoglycemia, unspecified SNOMED: 096193490 (3) LLOYD (acute kidney injury) ICD Codes: N17.9 - Acute kidney failure, unspecified SNOMED: 3122175, [id number] Status: stable Assessment/Plan: 84 year old male, presented with dizziness, shaking and lightheadedness being admitted for symptomatic bradycardia, LLOYD and dehydration #Symptomatic bradycardia -Telemetry monitoring -EP cardiology consult with Dr. Newton -NPO -Hold bp meds -Check TSH #LLOYD- prerenal, possibly superimposed on CKD -Monitor renal function -Urine lytes -Nephrology consult, Dr. Lopez -Avoid nephrotoxic medications #hypoglycemia -hold meds -Monitor glucose -check HbA1c -will d/w Dr. Cyndy castellon endocrine consultation #HTN #HLD -hold bp meds -continue atorvastatin #BPH -continue Finasteride #Depression -continue Sertraline vte ppx: heparin subq GI ppx: Not indicated Diet: NPO Code status: full code. spent 15 minutes in face to face discussion regarding advance care planning/Goals of care. Patient is full code. Will attempt to fill out an AD and/or POLST with the patient prior to discharge, if not already completed. Rishabh continue to discuss both short and terminal clerk goals of care. I spent 70 minutes on this encounter. >50% spent on counselling and care coordination. I spent an additional 35 minutes on non face to face review of records. Plan of care d/w RN and consultants. Subjective Allergies: Coded Allergies: No Known Allergies (Unverified , 10/10/19) Objective Last 24 Hour Vital Signs Date Time Temp Pulse Resp B/P (MAP) Pulse Ox O2 Delivery O2 Flow Rate FiO2 10/14/19 08:00 98.2 53 18 135/58 (83) 93 10/14/19 06:24 125/50 10/14/19 04:00 64 10/14/19 04:00 97.3 64 21 132/65 (87) 95 10/14/19 00:00 56 10/14/19 00:00 97.0 58 21 111/51 (71) 96 10/13/19 21:58 132/66 10/13/19 21:00 Room Air 10/13/19 20:00 55 10/13/19 20:00 97.7 57 20 132/66 (88) 95 10/13/19 16:00 56 10/13/19 16:00 96.4 58 18 136/67 (90) 94 10/13/19 13:09 111/60 10/13/19 12:00 48 10/13/19 12:00 96.4 53 20 111/60 (77) 94 Intake and Output 10/13/19 10/14/19 19:00 07:00 Intake Total 240 ml Balance 240 ml Intake Oral 240 ml # Voids 2 4 Laboratory Tests 10/14/19 05:45: White Blood Count 5.8, Red Blood Count 2.92L, Hemoglobin 9.3L, Hematocrit 27.8L , Mean Corpuscular Volume 95, Mean Corpuscular Hemoglobin 32.0H, Mean Corpuscular Hemoglobin Concent 33.6, Red Cell Distribution Width 16.9H, Platelet Count 164, Mean Platelet Volume 5.7L, Neutrophils (%) (Auto) 59.0, Lymphocytes (%) (Auto) 22.2, Monocytes (%) (Auto) 10.8H, Eosinophils (%) (Auto) 6.9H, Basophils (%) (Auto) 1.1, Sodium Level 138, Potassium Level 3.8, Chloride Level 105, Carbon Dioxide Level 29, Anion Gap 4L, Blood Urea Nitrogen 57H, Creatinine 1.9H, Estimat Glomerular Filtration Rate , Glucose Level 110H, Calcium Level 8.5 Height (Feet): 5 Height (Inches): 10.00 Weight (Pounds): 200 Jordin Kline M.D. Oct 14, 2019 09:16
[2019-10-14] MEDS: Sertraline 50mg tab ORAL SCH (09:40)
[2019-10-14] MEDS: Tamsulosin 0.4mg cap ORAL SCH (09:40)
--- NOTE | 2019-10-14 09:42 | NUR ---
CASE MANAGEMENT: REVIEW 10/13/2019 SI: SYMPTOMATIC BRADYCARDIA / SEVERE DIZZINESS 97.0 60 18 127/63 92% ON RA H/H 10.0/29.3 BUN 57 CREAT 1.9 URIC ACID 1.6 IS: IV D5 @ 75 ML/HR HYDRALAZINE PO TID PROSCAR PO QD FLOMAX PO Q12H : 2E TELE UNIT DCP: HOME WHEN MEDICALLY CLEARED CASE MANAGEMENT: REVIEW 10/14/2019 SI: SYMPTOMATIC BRADYCARDIA / UTI BACTERURIA 98.2 53 18 135/85 93% ON RA H/H 9.3/27.8 BUN 57 CREAT 1.9 URIC ACID 1.6 Al+2.7 IS: IV D5 @ 75 ML/HR HYDRALAZINE PO TID PROSCAR PO QD FLOMAX PO Q12H : 2E TELE UNIT DCP: HOME WHEN MEDICALLY CLEARED PLAN: PT EVAL MRSA URINE (+)
--- NOTE | 2019-10-14 10:02 | Nephrology Progress Note ---
Assessment/Plan Problem List: (1) LLOYD (acute kidney injury) Assessment: superimposed on CKD (2) Bradycardia (3) BPH (benign prostatic hyperplasia) (4) HTN (hypertension) (5) Anemia Assessment LLOYD (acute kidney injury) ? superimposed on CKD Symptomatic bradycardia DM / Hypoglycemia HTN BPH Depression Anemia Plan flomax- stop IV fluids Low dose hydralazine stable from renal stand for DC Subjective ROS Limited/Unobtainable: No Constitutional: Reports: malaise Objective Objective Last 24 Hour Vital Signs Date Time Temp Pulse Resp B/P (MAP) Pulse Ox O2 Delivery O2 Flow Rate FiO2 10/14/19 08:00 98.2 53 18 135/58 (83) 93 10/14/19 06:24 125/50 10/14/19 04:00 64 10/14/19 04:00 97.3 64 21 132/65 (87) 95 10/14/19 00:00 56 10/14/19 00:00 97.0 58 21 111/51 (71) 96 10/13/19 21:58 132/66 10/13/19 21:00 Room Air 10/13/19 20:00 55 10/13/19 20:00 97.7 57 20 132/66 (88) 95 10/13/19 16:00 56 10/13/19 16:00 96.4 58 18 136/67 (90) 94 10/13/19 13:09 111/60 10/13/19 12:00 48 10/13/19 12:00 96.4 53 20 111/60 (77) 94 Intake and Output 10/13/19 10/14/19 19:00 07:00 Intake Total 240 ml Balance 240 ml Intake Oral 240 ml # Voids 2 4 Laboratory Tests 10/14/19 05:45: White Blood Count 5.8, Red Blood Count 2.92L, Hemoglobin 9.3L, Hematocrit 27.8L , Mean Corpuscular Volume 95, Mean Corpuscular Hemoglobin 32.0H, Mean Corpuscular Hemoglobin Concent 33.6, Red Cell Distribution Width 16.9H, Platelet Count 164, Mean Platelet Volume 5.7L, Neutrophils (%) (Auto) 59.0, Lymphocytes (%) (Auto) 22.2, Monocytes (%) (Auto) 10.8H, Eosinophils (%) (Auto) 6.9H, Basophils (%) (Auto) 1.1, Sodium Level 138, Potassium Level 3.8, Chloride Level 105, Carbon Dioxide Level 29, Anion Gap 4L, Blood Urea Nitrogen 57H, Creatinine 1.9H, Estimat Glomerular Filtration Rate , Glucose Level 110H, Calcium Level 8.5 Height (Feet): 5 Height (Inches): 10.00 Weight (Pounds): 200 General Appearance: no apparent distress Objective no change Nabil Lopez MD Oct 14, 2019 10:02
[2019-10-14 12:00] VITALS: BP 120/61
--- NOTE | 2019-10-14 12:19 | Discharge Summary ---
Discharge Summary Hospital Course Date of Admission Oct 10, 2019 at 18:10 Date of Discharge 10/14/2019 Admitting Diagnosis symptomatic bradycardia severe dizziness HPI Ramone Keith is a 84 year old male who was admitted on Oct 10, 2019 at 18:10 for Symptomatic Bradycardia/Severe Dizziness Consultations EP cardiology: Dr. Newton ID: Dr. Nolan Nephrology: Dr. Lopez Hospital Course 84 year old male, presented with dizziness, shaking and lightheadedness being admitted for symptomatic bradycardia, LLOYD and dehydration #Symptomatic bradycardia -Telemetry monitoring -EP cardiology consult with Dr. Newton- no need for pacemaker. #LLOYD- prerenal, superimposed on CKD #MRSA urine, asymptomatic -Monitor renal function -Urine lytes -Nephrology consult, Dr. Lopez -Avoid nephrotoxic medications -ID consulted. no need for treatment of MRSA pyuria and bacteriuria #DM with hypoglycemia -hold meds -Monitor glucose -HbA1c 5.4 -Endocrine consukt Dr. Chaparro per Dr. Naylor's request -Per endocrine consult: The patient should stay off of Soliqua. At home, he is on 18 units a day and the pen cannot administer any number less than 15 units. So, I asked him to hold off on Soliqua when he is discharged and do not resume. We will arrange for a close follow-up with Dr. Naylor for adjustment of diabetic regimen. d/w patient's son and patient. #Mildly elevated TSH with normal free T4 TSH is barely elevated. This is only 1 out of 2 values. A second value is normal. Free T4 is normal. Basically, the patient is euthyroid and the bradycardia has nothing to do with his thyroid status. He is not a candidate for thyroid hormone replacement either. #HTN #HLD -resume bp meds -continue atorvastatin #BPH -continue Finasteride #Depression -continue Sertraline vte ppx: heparin subq GI ppx: Not indicated Diet: NPO Code status: full code. Deposition: home- patient refused home health services Exam on discharge: alert and oriented x4. no distress. lung: cta bl, cvs: s1s2, no m/r/g, ext: no edema I spent 35 minutes on this encounter. >50% spent on counselling and care coordination. Plan of care d/w RN and consultants. Discharge Medications Continued Medications: Amlodipine Besylate* (Amlodipine Besylate*) 5 Mg Tablet 5 MG ORAL DAILY, TAB Atorvastatin Calcium* (Atorvastatin Calcium*) 40 Mg Tablet 80 MG ORAL BEDTIME, TAB Finasteride* (Proscar*) 5 Mg Tablet 5 MG ORAL DAILY, #30 TAB 0 Refills Sertraline Hcl* (Sertraline Hcl*) 25 Mg Tablet 25 MG ORAL DAILY, TAB Discharge Condition Upon Discharge: stable Discharge Disposition Patient was discharged to home Discharge Diagnoses: (1) Symptomatic bradycardia (2) LLOYD (acute kidney injury) (3) Hypoglycemia (4) BPH (benign prostatic hyperplasia) Jordin Kline M.D. Oct 14, 2019 12:19
--- NOTE | 2019-10-14 12:32 | Discharge Instructions ---
Discharge Instructions Discharge Instructions Follow Up Orders Stop taking Soliqua injections. For Congestive Heart Failure Reminder Report to your physician any weight gain of 5 pounds or more in one week. Jordin Kline M.D. Oct 14, 2019 12:32
--- NOTE | 2019-10-14 14:06 | NUR ---
P.T Note: P.T evaluation completed and tx initiated. Please refer to P.T evaluation for current functional status. Pt is alert, O x 4 , pleasant and cooperative. Pt. presented generalized weakness and poor activity tolerance affecting overall mobility independence and safety. Pt currently requires MIN/MOD A X 1 for bed mobility, transfers and gait/ambulation activities for short distance using the FWW. Pt will benefit from skilled P.T service to improve his strength, endurance and balance to increase his mobility independence and safety. Recommend SNF for short term rehab VS home with P.T depending on progress. Thank you for this referral. Pt is cleared for OOB activities with nursing assistance.
--- NOTE | 2019-10-14 14:45 | NUR ---
NURSE NOTES: Patient discharged to home per Dr. Kline. Patient educated for medication and side effects. Family member at the bedside. Patient AOx4, on room air. IV removed, ID band removed and placed in shredder, day care home mother returned to it technical support specialist. Bladder scan done per MD's request 80ml in bladder, patient incontinent able to produce urine. Patient discharged with all belongings in a stable condition.
== END 2019-10-14 14:45 | disposition home or self-care (01) | DRG 684 ==
LOC: EDBD 13:55 → EDBEDREQ 15:39 → EMR 18:06 → 2W 18:10 → EDBEDREQ 20:43 → 2E 10-11 06:58
DX: N17.9 Acute kidney failure, unspecified (principal); R00.1 Bradycardia, unspecified; I12.9 Hypertensive chronic kidney disease with stage 1 through stage 4 chronic kidney disease, or unspecified chronic kidney disease; R42 Dizziness and giddiness; E86.0 Dehydration; N18.9 Chronic kidney disease, unspecified; N40.0 Benign prostatic hyperplasia without lower urinary tract symptoms; F32.9 Major depressive disorder, single episode, unspecified; E11.649 Type 2 diabetes mellitus with hypoglycemia without coma
CPT/HCPCS: 36415; 71045; 76770; 80048; 80053; 81003; 82550; 82553; 82570; 82607; 82728; 82746; 82962; 83036; 83540; 83550; 83605; 83690; 83735; 83880; 84100; 84300; 84439; 84443; 84481; 84484; 84550; 85025; 85610; 85730; 87040; 87086; 87181; 93005; 93306; 96374; 99285